=== PATIENT | female | born 1950 | race Two or more races ===

== ENCOUNTER 2020-09-09 13:26 | Emergency (ER) | payer BC, MEDICARE ==
[2020-09-09 13:39] VITALS: TEMP 98.7
[2020-09-09] MEDS ORDERED: SODIUM CHLORIDE 0.9% 1,000 ML IV STA (13:47)
[2020-09-09 14:23] LABS: Basophils % (A) 1 %; Eosinophils # (A) 0.2 k/uL (0-0.7); Eosinophils % (A) 2 %; HCT 37.1 % (34.0-46.0); HGB 11.7 gm/dL (11.4-16.0); Lymphocytes # (A) 1.2 k/uL (1.0-4.8); Lymphocytes % (A) 17 %; MCH 27.7 pg (25.0-35.0); MCHC 31.6 g/dL (31.0-37.0); MCV 87.5 fL (80.0-100.0); Monocytes # (A) 0.4 k/uL (0-1.0); Monocytes % (A) 6 %; Neutrophils # (A) 5.1 k/uL (1.3-7.7); Neutrophils % (A) 74 %; Platelet Count 257 k/uL (150-450); RBC 4.24 m/uL (3.80-5.40); RDW 13.8 % (11.5-15.5); WBC 6.9 k/uL (3.8-10.6)
[2020-09-09 14:31] LABS: ALT 14 U/L (4-34); AST 23 U/L (14-36); African American GFR (CKD) >90 (>60 ml/min/1.73 sqM); Alkaline Phosphatase 53 U/L (38-126); Anion Gap 9 mmol/L; Blood Urea Nitrogen 19 mg/dL (7-17); Calcium 9.1 mg/dL (8.4-10.2); Carbon Dioxide 25 mmol/L (22-30); Chloride 103 mmol/L (98-107); Glucose 119 mg/dL (74-99); Non-African American GFR(CKD) >90 (>60 ml/min/1.73 sqM); Sodium 137 mmol/L (137-145); Total Bilirubin 0.4 mg/dL (0.2-1.3); Total Protein 7.2 g/dL (6.3-8.2)
[2020-09-09 14:40] LABS: INR 0.9 (<1.2); Prothrombin Time 10.1 sec (9.0-12.0)
--- NOTE | 2020-09-09 14:49 | XR ---
EXAMINATION TYPE: XR chest 2V DATE OF EXAM: 09/09/2020 COMPARISON: NONE HISTORY: Syncope TECHNIQUE: Frontal and lateral views of the chest are obtained. FINDINGS: There is no focal air space opacity, pleural effusion, or pneumothorax seen. The cardiac silhouette size is showing an enlarged heart. Prominent lung volumes with flattening the hemidiaphra gms may be indicative of underlying COPD. Technique is somewhat apical lordotic and rotated. The osse ous structures are intact, there is thoracic spondylosis, there are overlying artifacts, consider fol low-up. IMPRESSION: Cardiomegaly and additional findings above.
[2020-09-09 15:28] LABS: Partial Thromboplastin Time 21.4 sec (22.0-30.0)
[2020-09-09 16:05] VITALS: RESP 18
--- NOTE | 2020-09-09 16:06 | CT ---
EXAMINATION TYPE: CT brain wo con DATE OF EXAM: 09/09/2020 COMPARISON: None HISTORY: Syncopal episode CT DLP: 1099.4 mGycm Automated exposure control for dose reduction was used. FINDINGS: The ventricles, basal cisterns and sulci over the convexities are within normal limits. Along the rig ht aspect of the anterior falx there is an 18 mm hyperdense mass which appears to be extra-axial and most likely represents a meningioma. MRI of the brain with contrast is recommended for further evalua tion. There is no acute intra or extra-axial hemorrhage. The posterior fossa including the brainstem, fourth ventricle and cerebellar pontine angles appear no rmal. The intraorbital contents appear normal and symmetric. Visualized paranasal sinuses and mastoid air cells are well aerated. IMPRESSION: IMPRESSION: 18 MM EXTRA-AXIAL MASS ON THE RIGHT ASPECT OF THE ANTERIOR FALX MOST CONSISTENT WITH A MENINGIOMA. MR I OF THE BRAIN WITH AND WITHOUT CONTRAST IS RECOMMENDED FOR FURTHER EVALUATION. THERE IS NO ACUTE BLE ED OR SIGNIFICANT MASS EFFECT INTRACRANIALLY.
[2020-09-09 16:16] LABS: Appearance,Urine Clear (Clear); Bilirubin,Urine Negative (Negative); Blood,Urine Negative (Negative); Color,Urine Light Yellow; Glucose,Urine (UA) Negative (Negative); Ketones,Urine Negative (Negative); Leukocyte Esterase,Urine Negative (Negative); Nitrite,Urine Negative (Negative); PH, Urine 6.5 (5.0-8.0); Protein,Urine Negative (Negative); Specific Gravity,Urine 1.006 (1.001-1.035); Urobilinogen,Urine <2.0 mg/dL (<2.0)
--- NOTE | 2020-09-09 16:42 | ED ---
General Adult HPI - General Chief complaint: Syncope Stated complaint: Syncope Time Seen by Provider: 09/09/20 13:37 Source: patient Mode of arrival: EMS Limitations: no limitations - History of Present Illness Initial comments: 70-year-old female presents to emergency department via EMS for chief complaint of a syncopal episode. Patient states she was cooking on the stove when suddenly she felt lightheaded but not dizzy. Patient reports her vision turned dark but then her son was there to help her to bring her down to the ground. The son states the patient was not responding to verbal commands for approximately 3 minutes. He states the patient was slightly disoriented afterwards but returned to baseline rather quickly. Patient denies any biting on the tongue or urinary incontinence but she does report some bowel incontinence. Patient reports feeling slightly tired at this time but denies any other symptoms. Said denies any tonic-clonic like movements suggesting a seizure. Patient has not seen a primary care physician in quite some time. She does take metformin for diabetes but has untreated hypertension. - Related Data Home Medications Medication Instructions Recorded Confirmed metFORMIN HCL [Glucophage] 2,000 mg PO PC-SUPPER 09/09/20 09/09/20 metFORMIN HCL [Glucophage] 500 mg PO PC-BRKFST PRN 09/09/20 09/09/20 Previous Rx's Medication Instructions Recorded lisinopriL [Zestril] 5 mg PO DAILY #30 tablet 09/09/20 Allergies Allergy/AdvReac Type Severity Reaction Status Date / Time Iodinated Contrast Media Allergy Anaphylaxis Verified 09/09/20 17:11 Review of Systems ROS Statement: Those systems with pertinent positive or pertinent negative responses have been documented in the HPI. ROS Other: All systems not noted in ROS Statement are negative. Past Medical History Past Medical History: Diabetes Mellitus, Hypertension History of Any Multi-Drug Resistant Organisms: None Reported Past Surgical History: Hysterectomy Smoking Status: Never smoker Past Alcohol Use History: None Reported Past Drug Use History: None Reported General Exam Limitations: no limitations General appearance: alert, in no apparent distress Head exam: Present: atraumatic, normocephalic, normal inspection Eye exam: Present: normal appearance, PERRL, EOMI Pupils: Present: normal accommodation ENT exam: Present: normal exam, normal oropharynx, mucous membranes moist Neck exam: Present: normal inspection, full ROM. Absent: tenderness Respiratory exam: Present: normal lung sounds bilaterally. Absent: respiratory distress Cardiovascular Exam: Present: regular rate, normal rhythm, normal heart sounds GI/Abdominal exam: Present: soft. Absent: guarding, rebound Extremities exam: Present: normal inspection, full ROM, normal capillary refill, other (Palpable DP and PT bilaterally). Absent: tenderness, pedal edema, joint swelling, calf tenderness Back exam: Present: normal inspection, full ROM. Absent: tenderness Neurological exam: Present: alert, oriented X3, CN II-XII intact, normal gait Psychiatric exam: Present: normal affect, normal mood Skin exam: Present: warm, dry, intact, normal color Course Vital Signs 09/09/20 09/09/20 09/09/20 13:27 15:57 16:04 Temperature 98.7 F Pulse Rate 82 89 86 Respiratory 18 20 18 Rate Blood Pressure 145/72 200/98 192/92 O2 Sat by Pulse 99 98 98 Oximetry 09/09/20 09/09/20 16:34 17:23 Temperature Pulse Rate 85 92 Respiratory 18 18 Rate Blood Pressure 177/82 162/85 O2 Sat by Pulse 99 98 Oximetry Medical Decision Making - Medical Decision Making 70-year-old female presents to the emergency department with a chief complaint of a syncopal. On physical examination, patient is resting comfortably in bed. She is alert and oriented 3. No focal neural deficits. EKG showing left axis deviation but no other acute findings. Chest x-ray is unremarkable. CT of the brain without contrast reveals an 18 mm meningioma but no mass effect. CBC, CMP, UA, coags unremarkable. Patient does have untreated hypertension for many years could possibly explain the left axis deviation likely secondary from left heart strain. Patient was initially hypertensive but her blood pressure did improve throughout the hospital stay. I offered admission to the patient considering her age, hypertension and a new syncopal episode. She discussed that with the son and decided they will follow palpation. I gave them multiple recommendations for a primary care physician and advised them to make an appointment with one. I also gave the patient a prescription of 30 days 5 mg lisinopril daily. Strict return parameters were thoroughly discussed with patient and son were understanding and agreeable. Case discussed with - Lab Data Result diagrams: 09/09/20 14:18 09/09/20 14:18 Lab Results 09/09/20 09/09/20 09/09/20 Range/Units 14:18 14:18 14:18 WBC 6.9 (3.8-10.6) k/uL RBC 4.24 (3.80-5.40) m/uL Hgb 11.7 (11.4-16.0) gm/dL Hct 37.1 (34.0-46.0) % MCV 87.5 (80.0-100.0) fL MCH 27.7 (25.0-35.0) pg MCHC 31.6 (31.0-37.0) g/dL RDW 13.8 (11.5-15.5) % Plt Count 257 (150-450) k/uL MPV 8.0 Neutrophils % 74 % Lymphocytes % 17 % Monocytes % 6 % Eosinophils % 2 % Basophils % 1 % Neutrophils # 5.1 (1.3-7.7) k/uL Lymphocytes # 1.2 (1.0-4.8) k/uL Monocytes # 0.4 (0-1.0) k/uL Eosinophils # 0.2 (0-0.7) k/uL Basophils # 0.0 (0-0.2) k/uL PT 10.1 (9.0-12.0) sec INR 0.9 (<1.2) APTT 21.4 L (22.0-30.0) sec Sodium 137 (137-145) mmol/L Potassium 4.0 (3.5-5.1) mmol/L Chloride 103 (98-107) mmol/L Carbon Dioxide 25 (22-30) mmol/L Anion Gap 9 mmol/L BUN 19 H (7-17) mg/dL Creatinine 0.62 (0.52-1.04) mg/dL Est GFR (CKD-EPI)AfAm >90 (>60 ml/min/1.73 sqM) Est GFR (CKD-EPI)NonAf >90 (>60 ml/min/1.73 sqM) Glucose 119 H (74-99) mg/dL Calcium 9.1 (8.4-10.2) mg/dL Total Bilirubin 0.4 (0.2-1.3) mg/dL AST 23 (14-36) U/L ALT 14 (4-34) U/L Alkaline Phosphatase 53 (38-126) U/L Troponin I (0.000-0.034) ng/mL Total Protein 7.2 (6.3-8.2) g/dL Albumin 4.0 (3.5-5.0) g/dL Urine Color Urine Appearance (Clear) Urine pH (5.0-8.0) Ur Specific [place] (1.001-1.035) Urine Protein (Negative) Urine Glucose (UA) (Negative) Urine Ketones (Negative) Urine Blood (Negative) Urine Nitrite (Negative) Urine Bilirubin (Negative) Urine Urobilinogen (<2.0) mg/dL Ur Leukocyte Esterase (Negative) 09/09/20 09/09/20 Range/Units 14:18 16:09 WBC (3.8-10.6) k/uL RBC (3.80-5.40) m/uL Hgb (11.4-16.0) gm/dL Hct (34.0-46.0) % MCV (80.0-100.0) fL MCH (25.0-35.0) pg MCHC (31.0-37.0) g/dL RDW (11.5-15.5) % Plt Count (150-450) k/uL MPV Neutrophils % % Lymphocytes % % Monocytes % % Eosinophils % % Basophils % % Neutrophils # (1.3-7.7) k/uL Lymphocytes # (1.0-4.8) k/uL Monocytes # (0-1.0) k/uL Eosinophils # (0-0.7) k/uL Basophils # (0-0.2) k/uL PT (9.0-12.0) sec INR (<1.2) APTT (22.0-30.0) sec Sodium (137-145) mmol/L Potassium (3.5-5.1) mmol/L Chloride (98-107) mmol/L Carbon Dioxide (22-30) mmol/L Anion Gap mmol/L BUN (7-17) mg/dL Creatinine (0.52-1.04) mg/dL Est GFR (CKD-EPI)AfAm (>60 ml/min/1.73 sqM) Est GFR (CKD-EPI)NonAf (>60 ml/min/1.73 sqM) Glucose (74-99) mg/dL Calcium (8.4-10.2) mg/dL Total Bilirubin (0.2-1.3) mg/dL AST (14-36) U/L ALT (4-34) U/L Alkaline Phosphatase (38-126) U/L Troponin I <0.012 (0.000-0.034) ng/mL Total Protein (6.3-8.2) g/dL Albumin (3.5-5.0) g/dL Urine Color Light Yellow Urine Appearance Clear (Clear) Urine pH 6.5 (5.0-8.0) Ur Specific [place] 1.006 (1.001-1.035) Urine Protein Negative (Negative) Urine Glucose (UA) Negative (Negative) Urine Ketones Negative (Negative) Urine Blood Negative (Negative) Urine Nitrite Negative (Negative) Urine Bilirubin Negative (Negative) Urine Urobilinogen <2.0 (<2.0) mg/dL Ur Leukocyte Esterase Negative (Negative) Disposition Clinical Impression: Syncopal episodes, Meningioma Disposition: HOME SELF-CARE Condition: Stable Instructions (If sedation given, give patient instructions): Syncope (DC), Hypertension (ED) Additional Instructions: Take prescribed medication as directed. Establish a relationship with a primary care physician. Return to emergency department if symptoms worsen. Prescriptions: lisinopriL [Zestril] 5 mg PO DAILY #30 tablet Is patient prescribed a controlled substance at d/c from ED?: No Referrals: None,Stated [Primary Care Provider] - 1-2 days Jennifer Frank MD [STAFF PHYSICIAN] - 1-2 days Genny Tafoya MD [STAFF PHYSICIAN] - 1-2 days Sarah Her MD [REFERRING] - 1-2 days Ryan De Guzman MD [STAFF PHYSICIAN] - 1-2 days Sujit Gore MD [STAFF PHYSICIAN] - 1-2 days Time of Disposition: 17:16
[2020-09-09 17:25] VITALS: BP 162/85; PULSE 92
== END 2020-09-09 17:23 | disposition home or self-care (01) ==
LOC: EC 13:26
DX: R55 Syncope and collapse (principal); D32.9 Benign neoplasm of meninges, unspecified; R41.0 Disorientation, unspecified; E11.9 Type 2 diabetes mellitus without complications; I10 Essential (primary) hypertension; R15.9 Full incontinence of feces; Z79.84 Long term (current) use of oral hypoglycemic drugs; Z91.041 Radiographic dye allergy status; Z90.710 Acquired absence of both cervix and uterus
CPT/HCPCS: 36415; 70450; 71046; 80053; 81003; 84484; 85025; 85610; 85730; 93005; 96360; 99285

== ENCOUNTER 2020-09-12 07:22 | Inpatient (IN) | payer BC, MEDICARE ==
[2020-09-12] MEDS ORDERED: SODIUM CHLORIDE 0.9% 500 ML 500 ML IV STA (07:51)
[2020-09-12 08:17] LABS: Basophils % (A) 0 %; Eosinophils % (A) 0 %; HCT 35.4 % (34.0-46.0); HGB 11.5 gm/dL (11.4-16.0); Lymphocytes # (A) 1.2 k/uL (1.0-4.8); Lymphocytes % (A) 20 %; MCH 28.3 pg (25.0-35.0); MCHC 32.6 g/dL (31.0-37.0); MCV 86.9 fL (80.0-100.0); Mean Platelet Volume 8.2; Monocytes # (A) 0.3 k/uL (0-1.0); Monocytes % (A) 4 %; Neutrophils # (A) 4.7 k/uL (1.3-7.7); Neutrophils % (A) 75 %; Platelet Count 201 k/uL (150-450); RBC 4.07 m/uL (3.80-5.40); RDW 13.4 % (11.5-15.5); WBC 6.2 k/uL (3.8-10.6)
[2020-09-12 08:31] LABS: Albumin 3.9 g/dL (3.5-5.0); Calcium 8.9 mg/dL (8.4-10.2); Magnesium 1.7 mg/dL (1.6-2.3); Potassium 4.2 mmol/L (3.5-5.1); Total Bilirubin 0.4 mg/dL (0.2-1.3)
[2020-09-12 08:33] LABS: INR 0.9 (<1.2); Partial Thromboplastin Time 24.2 sec (22.0-30.0); Prothrombin Time 9.7 sec (9.0-12.0)
--- NOTE | 2020-09-12 08:38 | ED ---
General Adult HPI - General Chief complaint: Syncope Stated complaint: revisit - syncope Time Seen by Provider: 09/12/20 07:30 Source: patient, family Mode of arrival: ambulatory Limitations: no limitations - History of Present Illness Initial comments: Patient is a 70-year-old female past medical history of diabetes mellitus on metformin and hypertension who presents to the emergency department after she sustained syncopal episode last night. This is the second episode that the patient has sustained in the past several days. Patient was seen on the for similar complaint. At that time she was cooking in the kitchen when her son lowered her to the ground due to a syncopal episode. She was seen here in the emergency department where a chest x-ray, laboratory studies, EKG and a CT of the brain was performed. CT of the brain demonstrated an 18 mm meningioma. Patient was hypertensive. Admission was recommended however the patient refused stating that she would follow up in office. Daughter states that she does have an appointment scheduled for tomorrow to see Dr. Her. She has not seen a doctor in some time. The patient once again had another syncopal episode last night. Daughter states that the patient was praying with her when she ended up slumping over to the floor. Patient denies having any symptoms prior to the incident. Denies any injury from a single episode. Patient once again lowered to the ground and was unresponsive for approximate 5 minutes. This was videotaped by family. There was no seizure-like activity. The patient did have an episode of stool incontinence. Denies black or bloody stools. Bowel movement was loose. No urinary incontinence. Patient denies having any chest pain or shortness of breath prior to the incident. Patient did not take her medications at this morning. Normally only checks her glucose once daily. Blood pressure was checked by son-in-law and was found to be 80s over 40s. The patient denies any headaches or visual changes. No sick contacts. Patient does arrive with a fever. Denies fevers at home. No previous cardiac history. Denies any abdominal pain. No other alleviating, precipitating or modifying factors - Related Data Home Medications Medication Instructions Recorded Confirmed metFORMIN HCL [Glucophage] 2,000 mg PO PC-SUPPER 09/09/20 09/09/20 metFORMIN HCL [Glucophage] 500 mg PO PC-BRKFST PRN 09/09/20 09/09/20 Previous Rx's Medication Instructions Recorded lisinopriL [Zestril] 5 mg PO DAILY #30 tablet 09/09/20 Allergies Allergy/AdvReac Type Severity Reaction Status Date / Time Iodinated Contrast Media Allergy Anaphylaxis Verified 09/12/20 07:24 Review of Systems ROS Statement: Those systems with pertinent positive or pertinent negative responses have been documented in the HPI. ROS Other: All systems not noted in ROS Statement are negative. Past Medical History Past Medical History: Diabetes Mellitus, Hypertension History of Any Multi-Drug Resistant Organisms: None Reported Past Surgical History: Hysterectomy Past Psychological History: No Psychological Hx Reported Smoking Status: Never smoker Past Alcohol Use History: None Reported Past Drug Use History: None Reported General Exam Limitations: no limitations General appearance: alert, in no apparent distress Head exam: Present: atraumatic, normocephalic, normal inspection Eye exam: Present: normal appearance, PERRL, EOMI. Absent: scleral icterus, conjunctival injection, periorbital swelling ENT exam: Present: normal exam, mucous membranes moist Neck exam: Present: normal inspection. Absent: tenderness, meningismus, lymphad enopathy Respiratory exam: Present: normal lung sounds bilaterally. Absent: respiratory distress, wheezes, rales, rhonchi, stridor Cardiovascular Exam: Present: regular rate, normal rhythm, normal heart sounds. Absent: systolic murmur, diastolic murmur, rubs, gallop, clicks GI/Abdominal exam: Present: soft, normal bowel sounds. Absent: distended, tenderness, guarding, rebound, rigid Extremities exam: Present: normal inspection, full ROM, normal capillary refill. Absent: tenderness, pedal edema, joint swelling, calf tenderness Back exam: Present: normal inspection Neurological exam: Present: alert, oriented X3, CN II-XII intact Psychiatric exam: Present: normal affect, normal mood Skin exam: Present: warm, dry, intact, normal color. Absent: rash Course Vital Signs 09/12/20 09/12/20 09/12/20 07:24 08:20 09:03 Temperature 100.6 F H 100.1 F H Pulse Rate 67 72 Pulse Rate [ 76 Left Sitting Baling Press Operator ] Pulse Rate [ 81 Left Standing Baling Press Operator ] Pulse Rate [ 76 Left Supine Baling Press Operator ] Respiratory 18 18 Rate Blood Pressure 154/73 135/75 Blood Pressure 146/68 [Left Arm Sitting] Blood Pressure 153/63 [Left Arm Standing] Blood Pressure 139/71 [Left Arm Supine] O2 Sat by Pulse 95 96 Oximetry EKG Findings - EKG Comments: EKG Findings:: EKG demonstrates normal sinus rhythm with ventricular rate of 75. PT inteval 166. QRS 90. QTC 439. No acute ST segment elevations or depressions concerning for ischemic changes Medical Decision Making - Medical Decision Making Martín patient is placed in room 3. A thorough history and physical exam was performed. IV is established. Orthostatics are obtained and are negative. Patient is given a 500 mL bolus of normal saline. I repeated laboratory studies. Patient did provide a urine sample. She is swabbed for covid due to her fever. I did review the patient's chest x-ray and CT of her brain from the seventh. Laboratory studies are reviewed and demonstrated a d-dimer of 1. Coronavirus is detected. Rare bacteria in the urine with small leukocyte esterase. I did order a CT of the patient's chest however the patient refused the study. Risks and benefits are discussed patient the patient continues to refuse. As the patient has had 2 single episodes that did recommend hospital admission for which patient did agree to. Patient started on Lovenox at this time. Carotids and echo ordered. Spoke with Preeti from [facility] who accepted admission. Patient awaiting a bed on the floor. - Lab Data Result diagrams: 09/12/20 07:59 09/12/20 07:59 Lab Results 09/12/20 09/12/20 09/12/20 Range/Units 07:59 07:59 07:59 WBC 6.2 (3.8-10.6) k/uL RBC 4.07 (3.80-5.40) m/uL Hgb 11.5 (11.4-16.0) gm/dL Hct 35.4 (34.0-46.0) % MCV 86.9 (80.0-100.0) fL MCH 28.3 (25.0-35.0) pg MCHC 32.6 (31.0-37.0) g/dL RDW 13.4 (11.5-15.5) % Plt Count 201 (150-450) k/uL MPV 8.2 Neutrophils % 75 % Lymphocytes % 20 % Monocytes % 4 % Eosinophils % 0 % Basophils % 0 % Neutrophils # 4.7 (1.3-7.7) k/uL Lymphocytes # 1.2 (1.0-4.8) k/uL Monocytes # 0.3 (0-1.0) k/uL Eosinophils # 0.0 (0-0.7) k/uL Basophils # 0.0 (0-0.2) k/uL PT 9.7 (9.0-12.0) sec INR 0.9 (<1.2) APTT 24.2 (22.0-30.0) sec D-Dimer 1.00 H (<0.60) mg/L FEU Sodium (137-145) mmol/L Potassium (3.5-5.1) mmol/L Chloride (98-107) mmol/L Carbon Dioxide (22-30) mmol/L Anion Gap mmol/L BUN (7-17) mg/dL Creatinine (0.52-1.04) mg/dL Est GFR (CKD-EPI)AfAm (>60 ml/min/1.73 sqM) Est GFR (CKD-EPI)NonAf (>60 ml/min/1.73 sqM) Glucose (74-99) mg/dL Plasma Lactic Acid [place] (0.7-2.0) mmol/L Calcium (8.4-10.2) mg/dL Magnesium (1.6-2.3) mg/dL Total Bilirubin (0.2-1.3) mg/dL AST (14-36) U/L ALT (4-34) U/L Alkaline Phosphatase (38-126) U/L Troponin I (0.000-0.034) ng/mL Total Protein (6.3-8.2) g/dL Albumin (3.5-5.0) g/dL TSH (0.465-4.680) mIU/L Urine Color Urine Appearance (Clear) Urine pH (5.0-8.0) Ur Specific [place] (1.001-1.035) Urine Protein (Negative) Urine Glucose (UA) (Negative) Urine Ketones (Negative) Urine Blood (Negative) Urine Nitrite (Negative) Urine Bilirubin (Negative) Urine Urobilinogen (<2.0) mg/dL Ur Leukocyte Esterase (Negative) Urine RBC (0-5) /hpf Urine WBC (0-5) /hpf Ur Squamous Epith Cells (0-4) /hpf Urine Bacteria (None) /hpf Hyaline Casts (0-2) /lpf Urine Mucus (None) /hpf Coronavirus (PCR) Detected A (Not Detectd) Influenza Type A RNA Not Detected (Not Detectd) Influenza Type B (PCR) Not Detected (Not Detectd) 09/12/20 09/12/20 09/12/20 Range/Units 07:59 07:59 07:59 WBC (3.8-10.6) k/uL RBC (3.80-5.40) m/uL Hgb (11.4-16.0) gm/dL Hct (34.0-46.0) % MCV (80.0-100.0) fL MCH (25.0-35.0) pg MCHC (31.0-37.0) g/dL RDW (11.5-15.5) % Plt Count (150-450) k/uL MPV Neutrophils % % Lymphocytes % % Monocytes % % Eosinophils % % Basophils % % Neutrophils # (1.3-7.7) k/uL Lymphocytes # (1.0-4.8) k/uL Monocytes # (0-1.0) k/uL Eosinophils # (0-0.7) k/uL Basophils # (0-0.2) k/uL PT (9.0-12.0) sec INR (<1.2) APTT (22.0-30.0) sec D-Dimer (<0.60) mg/L FEU Sodium 134 L (137-145) mmol/L Potassium 4.2 (3.5-5.1) mmol/L Chloride 99 (98-107) mmol/L Carbon Dioxide 25 (22-30) mmol/L Anion Gap 10 mmol/L BUN 15 (7-17) mg/dL Creatinine 0.81 (0.52-1.04) mg/dL Est GFR (CKD-EPI)AfAm 86 (>60 ml/min/1.73 sqM) Est GFR (CKD-EPI)NonAf 74 (>60 ml/min/1.73 sqM) Glucose 110 H (74-99) mg/dL Plasma Lactic Acid [place] 1.0 (0.7-2.0) mmol/L Calcium 8.9 (8.4-10.2) mg/dL Magnesium 1.7 (1.6-2.3) mg/dL Total Bilirubin 0.4 (0.2-1.3) mg/dL AST 27 (14-36) U/L ALT 15 (4-34) U/L Alkaline Phosphatase 49 (38-126) U/L Troponin I (0.000-0.034) ng/mL Total Protein 7.0 (6.3-8.2) g/dL Albumin 3.9 (3.5-5.0) g/dL TSH 3.790 (0.465-4.680) mIU/L Urine Color Yellow Urine Appearance Clear (Clear) Urine pH 6.5 (5.0-8.0) Ur Specific [place] 1.012 (1.001-1.035) Urine Protein 1+ H (Negative) Urine Glucose (UA) Negative (Negative) Urine Ketones Negative (Negative) Urine Blood Negative (Negative) Urine Nitrite Negative (Negative) Urine Bilirubin Negative (Negative) Urine Urobilinogen <2.0 (<2.0) mg/dL Ur Leukocyte Esterase Small H (Negative) Urine RBC 1 (0-5) /hpf Urine WBC 2 (0-5) /hpf Ur Squamous Epith Cells <1 (0-4) /hpf Urine Bacteria Rare H (None) /hpf Hyaline Casts 1 (0-2) /lpf Urine Mucus Few H (None) /hpf Coronavirus (PCR) (Not Detectd) Influenza Type A RNA (Not Detectd) Influenza Type B (PCR) (Not Detectd) 09/12/20 Range/Units 07:59 WBC (3.8-10.6) k/uL RBC (3.80-5.40) m/uL Hgb (11.4-16.0) gm/dL Hct (34.0-46.0) % MCV (80.0-100.0) fL MCH (25.0-35.0) pg MCHC (31.0-37.0) g/dL RDW (11.5-15.5) % Plt Count (150-450) k/uL MPV Neutrophils % % Lymphocytes % % Monocytes % % Eosinophils % % Basophils % % Neutrophils # (1.3-7.7) k/uL Lymphocytes # (1.0-4.8) k/uL Monocytes # (0-1.0) k/uL Eosinophils # (0-0.7) k/uL Basophils # (0-0.2) k/uL PT (9.0-12.0) sec INR (<1.2) APTT (22.0-30.0) sec D-Dimer (<0.60) mg/L FEU Sodium (137-145) mmol/L Potassium (3.5-5.1) mmol/L Chloride (98-107) mmol/L Carbon Dioxide (22-30) mmol/L Anion Gap mmol/L BUN (7-17) mg/dL Creatinine (0.52-1.04) mg/dL Est GFR (CKD-EPI)AfAm (>60 ml/min/1.73 sqM) Est GFR (CKD-EPI)NonAf (>60 ml/min/1.73 sqM) Glucose (74-99) mg/dL Plasma Lactic Acid [place] (0.7-2.0) mmol/L Calcium (8.4-10.2) mg/dL Magnesium (1.6-2.3) mg/dL Total Bilirubin (0.2-1.3) mg/dL AST (14-36) U/L ALT (4-34) U/L Alkaline Phosphatase (38-126) U/L Troponin I <0.012 (0.000-0.034) ng/mL Total Protein (6.3-8.2) g/dL Albumin (3.5-5.0) g/dL TSH (0.465-4.680) mIU/L Urine Color Urine Appearance (Clear) Urine pH (5.0-8.0) Ur Specific [place] (1.001-1.035) Urine Protein (Negative) Urine Glucose (UA) (Negative) Urine Ketones (Negative) Urine Blood (Negative) Urine Nitrite (Negative) Urine Bilirubin (Negative) Urine Urobilinogen (<2.0) mg/dL Ur Leukocyte Esterase (Negative) Urine RBC (0-5) /hpf Urine WBC (0-5) /hpf Ur Squamous Epith Cells (0-4) /hpf Urine Bacteria (None) /hpf Hyaline Casts (0-2) /lpf Urine Mucus (None) /hpf Coronavirus (PCR) (Not Detectd) Influenza Type A RNA (Not Detectd) Influenza Type B (PCR) (Not Detectd) Disposition Clinical Impression: Syncopal episodes, COVID-19, Fever, Diarrhea Disposition: ADMITTED IP TO THIS [facility] Condition: Stable Is patient prescribed a controlled substance at d/c from ED?: No Referrals: Sarah Her MD [Primary Care Provider] - 1-2 days Decision to Admit Reason: Admit from EC Decision Date: 09/12/20 Decision Time: 09:18
[2020-09-12 08:40] LABS: SARS-CoV-2 RNA Rapid Abbott Detected (Not Detectd)
[2020-09-12 08:41] LABS: Appearance,Urine Clear (Clear); Bacteria,Urine Rare /hpf; Bilirubin,Urine Negative (Negative); Blood,Urine Negative (Negative); Color,Urine Yellow; Glucose,Urine (UA) Negative (Negative); Hyaline Casts,Urine 1 /lpf (0-2); Ketones,Urine Negative (Negative); Leukocyte Esterase,Urine Small (Negative); Mucus,Urine Few /hpf; Nitrite,Urine Negative (Negative); PH, Urine 6.5 (5.0-8.0); Protein,Urine 1+ (Negative); RBC,Urine 1 /hpf (0-5); Specific Gravity,Urine 1.012 (1.001-1.035); Squamous Epithelial Cell,Urine <1 /hpf (0-4); Urobilinogen,Urine <2.0 mg/dL (<2.0); WBC,Urine 2 /hpf (0-5)
[2020-09-12] MEDS ORDERED: methylPREDNISolone SOD SUCCI 125 MG/2 ML VIAL IV STA (08:54)
[2020-09-12] MEDS ORDERED: diphenhydrAMINE 50 MG/ML 1 ML VIAL IVP STA (08:54)
[2020-09-12] MEDS ORDERED: FAMOTIDINE 20 MG/2 ML VIAL IV STA (08:54)
[2020-09-12] MEDS ORDERED: ENOXAPARIN 60 MG/0.6 ML SYRINGE SQ ONE (09:15)
[2020-09-12] MEDS ORDERED: NALOXONE 0.4 MG/ML 1 ML VIAL IV PRN (09:18)
[2020-09-12] MEDS ORDERED: ACETAMINOPHEN TAB 325 MG TAB PO PRN (09:18)
[2020-09-12] MEDS: SODIUM CHLORIDE 0.9% 1,000 ML IV SCH ×2 (10:29→20:27)
--- NOTE | 2020-09-12 10:31 | US ---
EXAMINATION TYPE: US carotid duplex BILAT DATE OF EXAM: 09/12/2020 COMPARISON: NONE CLINICAL HISTORY: 70-year-old female syncope x2. Syncopal episode this morning. Diagnosed with COVID this morning. TECHNIQUE: Carotid duplex ultrasound examination. Indirect Doppler criteria was utilized. 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 No elevated velocities. No significant stenosis. No plaque visualized. Incidental finding: Right thyroid lobe nodule = 2.6 x 2.1 x 2.0 cm Incidental finding: Right lateral neck prominent lymph node = 2.1 x 1.0 x 0.7 cm IMPRESSION: 1. Measurements may reflect a mild, less than 50% stenosis in the left ICA. 2. No hemodynamically significant internal carotid artery stenosis on either side. 3. Incidental primarily solid, round, echogenic nodule measuring 2.6 cm in the right thyroid lobe. This is a TR3 nodule and based on size criteria, FNA can be performed. 4. A mildly thickened and borderline sized lymph node along the right lateral neck measuring 1.0 cm s hort axis. Recommend clinical follow-up for any palpable abnormality. 6-8 week follow-up ultrasound c an also be performed. Criteria for Assigning % of Stenosis / Diameter reduction (Estimation based on the indirect measurements of the internal carotid artery velocities (ICA PSV). 1. Normal (no stenosis)=ICA PSV < 125 cm/s: ratio < 2.0: ICA EDV<40 cm/s. 2. Less than 50% stenosis=ICA PSV < 125 cm/s: ratio < 2.0: ICA EDV<40 cm/s. 3. 50 to 69% stenosis=ICA PSV of 125 to 230 cm/s: ration 2.0 ? 4.0: ICA EDV 40-100 cm/s. 4. Greater than 70% stenosis to near occlusion= ICA PSV > 230 cm/s: ratio > 4.0: ICA EDV > 100 cm/s. 5. Near occlusion= ICA PSV velocities may be low or undetectable: variable ratio and ICA EDV. 6. Total occlusion=unable to detect flow.
--- NOTE | 2020-09-12 12:11 | XR ---
EXAMINATION TYPE: XR chest 1V portable DATE OF EXAM: 09/12/2020 CLINICAL HISTORY: Covid positive. TECHNIQUE: Single AP portable frontal view of the chest is obtained. COMPARISON: Chest x-ray from 3 days earlier FINDINGS: Background chronic parenchymal changes without suspicious new focal airspace opacity, pleu ral effusion, or pneumothorax seen bilaterally. Persistent cardiomegaly. Overlying EKG leads. Osseous structures remain intact. IMPRESSION: Chronic changes and cardiomegaly without new acute airspace opacity. No significant guy e from prior.
--- NOTE | 2020-09-12 15:42 | P.CNPUL ---
History of Present Illness Consult date: 09/12/20 Requesting physician: Lizeth Munoz Reason for consult: other Chief complaint: syncope History of present illness: 70-year-old white female patient with past medical history of hypertension, diabetes mellitus on metformin, lifetime nonsmoker, who presented emergency department on the 09/12/2020 after having a syncopal episode last night. This is her second syncopal episode in the past several days. Patient was seen in the emergency department on 09/09/2020 with a syncopal episode. CT of the brain without contrast on 09/09/2020 revealed the 18 mm meningioma but no mass effect. Her laboratory workup and coags were unremarkable, EKG showed left axis deviation but no other acute findings, chest x-ray was unremarkable. Patient has not seen a physician in some time, she takes metformin for her diabetes but she has untreated hypertension. Patient was offered admission at that time ho wever she was feeling better and she decided to follow up on outpatient basis. Patient was given a new prescription of lisinopril 5 mg daily at that time for elevated blood pressures. Patient had another syncopal episode last night when she was playing with her and ended up slumping over to the floor and patient had no symptoms prior to the incident. Patient did not suffer any injuries. Patient was lowered to the ground and she was unresponsive for approximately 5 minutes, and this was videotaped by her family, there was no seizure-like activity, patient did have an episode of stool incontinence, no black or bloody stools, her bowel movement was loose, there was no urinary incontinence, patient denied any chest pain or shortness of breath prior to the incident. Patient did not take her medications this morning. Her blood pressure was checked by her son-in-law and was low at 80/40. When the patient came to she denied any headaches or visual changes. Patient did have a fever at home, but no shortness of breath, no cough. No nausea vomiting or diarrhea. He was tested for COVID 19 and was found to be positive, influenza screen was negative. CBC was unremarkable, Her d-dimer was 1, sodium is 134, the rest of electrolytes and renal profile were unremarkable, glucose was 110, lactic acid was 1, troponin was less than 0.012, LFTs were within normal limits, TSH was wi thin normal limits, urinalysis showed 1+ protein, small amount of leuks, but no evidence of infection. She is currently on room air, her pulse oximetry 95-98%, she is in sinus mechanism, her EKG showed normal sinus rhythm with left anterior fascicular block. Echocardiogram was completed showing no hemodynamically significant internal carotid artery stenosis on either side, incidental round echogenic nodule in the right thyroid lobe. Chest x-ray showed chronic changes and cardiomegaly without new acute airspace opacity. No significant pulmonary symptoms. She is however febrile with a temp of 100.6F. She is receiving gentle IV hydration, is resting comfortably in the gurney in the emergency department awaiting a bed on selective care unit. Review of Systems All systems: negative Constitutional: Denies chills, Denies fever Eyes: denies blurred vision, denies pain Ears, nose, mouth and throat: Denies headache, Denies sore throat Cardiovascular: Denies chest pain, Denies shortness of breath Respiratory: Denies cough Gastrointestinal: Denies abdominal pain, Denies diarrhea, Denies nausea, Denies vomiting Genitourinary: Denies dysuria, Denies hematuria Musculoskeletal: Denies myalgias Integumentary: Denies pruritus, Denies rash Neurological: Reports syncope, Denies numbness, Denies weakness Psychiatric: Denies anxiety, Denies depression Endocrine: Denies fatigue, Denies weight change Past Medical History Past Medical History: Diabetes Mellitus, Hypertension History of Any Multi-Drug Resistant Organisms: None Reported Past Surgical History: Hysterectomy Past Psychological History: No Psychological Hx Reported Smoking Status: Never smoker Past Alcohol Use History: None Reported Past Drug Use History: None Reported Medications and Allergies Home Medications Medication Instructions Recorded Confirmed Type metFORMIN HCL [Glucophage] 2,000 mg PO PC-SUPPER 09/09/20 09/12/20 History lisinopriL [Zestril] 5 mg PO HS 09/12/20 09/12/20 History Allergies Allergy/AdvReac Type Severity Reaction Status Date / Time Iodinated Contrast Media Allergy Anaphylaxis Verified 09/12/20 09:19 Physical Exam Vitals: Vital Signs Temp Pulse Pulse Pulse Pulse Resp BP 09/12/20 14:46 99.8 F H 94 18 142/68 09/12/20 09:03 100.1 F H 72 18 135/75 09/12/20 08:20 76 81 76 09/12/20 07:24 100.6 F H 67 18 154/73 BP BP BP Pulse Ox 09/12/20 14:46 98 09/12/20 09:03 96 09/12/20 08:20 146/68 153/63 139/71 09/12/20 07:24 95 Intake and Output 09/12/20 09/12/20 09/12/20 06:59 14:59 22:59 Other: Weight 65.771 kg GENERAL EXAM: Alert, very pleasant, 70-year-old white female, on room air, with a pulse ox of 95-98% comfortable in no apparent distress. HEAD: Normocephalic/atraumatic. EYES: Normal reaction of pupils, equal size. Conjunctiva pink, sclera white. NOSE: Clear with pink turbinates. THROAT: No erythema or exudates. NECK: No masses, no JVD, no thyroid enlargement, no adenopathy. CHEST: No chest wall deformity. Symmetrical expansion. LUNGS: Equal air entry with no crackles, wheeze, rhonchi or dullness. CVS: Regular rate and rhythm, normal S1 and S2, no gallops, no murmurs, no rubs ABDOMEN: Soft, nontender. No hepatosplenomegaly, normal bowel sounds, no guarding or rigidity. EXTREMITIES: No clubbing, no edema, no cyanosis, 2+ pulses and upper and lower extremities. MUSCULOSKELETAL: Muscle strength and tone normal. SPINE: No scoliosis or deformity SKIN: No rashes CENTRAL NERVOUS SYSTEM: Alert and oriented -3. No focal deficits, tone is normal in all 4 extremities. PSYCHIATRIC: Alert and oriented -3. Appropriate affect. Intact judgment and insight. Results - Laboratory Findings CBC and BMP: 09/12/20 07:59 09/12/20 07:59 PT/INR, D-dimer PT 9.7 sec (9.0-12.0) 09/12/20 07:59 INR 0.9 (<1.2) 09/12/20 07:59 D-Dimer 1.00 mg/L FEU (<0.60) H 09/12/20 07:59 Abnormal lab findings: Abnormal Labs 09/12/20 09/12/20 09/12/20 07:59 07:59 07:59 D-Dimer 1.00 H Sodium Glucose Urine Protein 1+ H Ur Leukocyte Esterase Small H Urine Bacteria Rare H Urine Mucus Few H Coronavirus (PCR) Detected A 09/12/20 07:59 D-Dimer Sodium 134 L Glucose 110 H Urine Protein Ur Leukocyte Esterase Urine Bacteria Urine Mucus Coronavirus (PCR) - Diagnostic Findings Chest x-ray: report reviewed, image reviewed Additional studies: EKG reviewed, carotid Doppler study reviewed, brain CT from 09/09/2000 reviewed Assessment and Plan Plan: Assessment: #1. Recurrent syncopal episodes of unclear etiology, patient was seen in the emergency department on 09/09/2020 and presenting again with recurrent syncope on all 09/12/2020 #2. Fever related to acute COVID 19 infection. No pulmonary symptoms no hypoxia at the time of presentation #3. d-dimer of 1, patient has declined to have CTA of the chest, this is nonspecific, possibly related to acute COVID 19 infection, patient was initially started on therapeutic doses of Lovenox which will be down to prophylactic Lovenox 40 mg daily #4. Hypertension, recently started on lisinopril and her last ER visit for sy ncope #5. 18 mm meningioma in the right aspect of the anterior falx, with the recommendation for MRI of the brain for further evaluation. No acute intracranial bleed or significant mass effect #6. Diabetes mellitus type 2 Plan: We'll consult cardiology and neurology for evaluation of patient's recurrent syncopal episodes, echocardiogram has been completed, EKG has been noted, chest x-ray has been reviewed, patient declined CTA chest, however she has no evidence of hypoxemia, no chest discomfort, no pulmonary symptoms, we will decrease the Lovenox to prophylactic dose 40 mg daily, continue gentle IV hydration. Carotid Doppler results have been reviewed. Continue to monitor patient's febrile pattern, dyspnea and any evidence of hypoxia. We'll start the patient on multivitamins, obtain lower extremity Dopplers, no need for steroids right now, patient is on room air, oxygenation is stable. We'll continue to follow I performed a history & physical examination of the patient and discussed their management with my nurse practitioner, Nany Montgomery. I reviewed the nurse practitioner's note and agree with the documented findings and plan of care. Lung sounds are positive for diffuse wheezes throughout the lung dixon. The findings and the impression was discussed with the patient. I attest to the documentation by the nurse practitioner. Time with Patient: Greater than 30
--- NOTE | 2020-09-12 16:35 | US ---
EXAMINATION TYPE: US venous doppler duplex LE DATE OF EXAM: 09/12/2020 4:25 PM COMPARISON: NONE CLINICAL HISTORY: elevated d-dimer. Covid patient, leg swelling SIDE PERFORMED: Bilateral TECHNIQUE: The lower extremity deep venous system is examined utilizing real time linear array sonog lizzie with graded compression, doppler sonography and color-flow sonography. VESSELS IMAGED: Common Femoral Vein Deep Femoral Vein Greater Saphenous Vein * Femoral Vein Popliteal Vein Small Saphenous Vein * Proximal Calf Veins (* superficial vessels) Right Leg: Negative for DVT Left Leg: Negative for DVT Grayscale, color doppler, spectral doppler imaging performed of the deep veins of the bilateral lower extremities. There is normal flow, compressibility, vascular waveforms. IMPRESSION: No ultrasound evidence for acute DVT in either lower extremity.
[2020-09-12 17:08] LABS: Glucose,Whole Blood 78 mg/dL (75-99)
[2020-09-12] MEDS: ZINC SULFATE 220 MG CAP PO SCH (17:25)
[2020-09-12] MEDS: CHOLECALCIFEROL 25 MCG (1000 IU) TABLET PO SCH (17:25)
--- NOTE | 2020-09-12 17:30 | P.HPIM ---
History of Present Illness Patient is a pleasant 70-year-old female came in after a syncopal episode while she was praying. Patient had a similar event the about 3 days ago on Thursday and patient came to ER had a CT of the head which showed an 18 mm meningioma without any mass effect and had laboratory workup was negative at the time. Patient came back with another episode of for syncopal event which was videotaped. I did happen to watch the pictures and medial patient became pale before syncopal episode patient doesn't have any confusion after the episode episode lasted for few minutes patient having any seizure-like activity loss of bowel or bladder incontinence. Patient had a low-grade fever because of which covid 19 test was obtained which came back positive. Patient simply as a screen was negative. Patient's LFTs and TSH are within normal limits troponin is negative patient has mildly low sodium of 134 and patient is on IV fluids at this time EKG showed a normal sinus rhythm with left anterior fascicular block echocardiogram was obtai shaggy as are pending patient had an carotid Doppler which did not show significant stenosis although there is some stenosis of less than 50% on one side. And there is an incidental finding of a solitary thyroid nodule which may need a biopsy. Review of Systems REVIEW OF SYSTEMS: CONSTITUTIONAL: As mentioned in HPI HEENT: No recent visual problems or hearing problems. Denied any sore throat. CARDIOVASCULAR: No chest pain, orthopnea, PND, no palpitations. PULMONARY: No shortness of breath, no cough, no hemoptysis. GASTROINTESTINAL: No diarrhea, no nausea, no vomiting, no abdominal pain. NEUROLOGICAL: No headaches, no weakness, no numbness. HEMATOLOGICAL: Denies any bleeding or petechiae. GENITOURINARY: Denies any burning micturition, frequency, or urgency. MUSCULOSKELETAL/RHEUMATOLOGICAL: Denies any joint pain, swelling, or any muscle pain. ENDOCRINE: Denies any polyuria or polydipsia. The rest of the 14-point review of systems is negative. Past Medical History Past Medical History: Diabetes Mellitus, Hypertension History of Any Multi-Drug Resistant Organisms: None Reported Past Surgical History: Hysterectomy Past Anesthesia/Blood Transfusion Reactions: No Reported Reaction Smoking Status: Never smoker Medications and Allergies Home Medications Medication Instructions Recorded Confirmed Type metFORMIN HCL [Glucophage] 2,000 mg PO PC-SUPPER 09/09/20 09/12/20 History lisinopriL [Zestril] 5 mg PO HS 09/12/20 09/12/20 History Allergies Allergy/AdvReac Type Severity Reaction Status Date / Time Iodinated Contrast Media Allergy Anaphylaxis Verified 09/12/20 09:19 Physical Exam Vitals: Vital Signs Temp Pulse Pulse Pulse Pulse Resp BP 09/12/20 15:44 99.0 F 81 16 09/12/20 14:46 99.8 F H 94 18 142/68 09/12/20 09:03 100.1 F H 72 18 135/75 09/12/20 08:20 76 81 76 09/12/20 07:24 100.6 F H 67 18 154/73 BP BP BP Pulse Ox 09/12/20 15:44 151/71 94 L 09/12/20 14:46 98 09/12/20 09:03 96 09/12/20 08:20 146/68 153/63 139/71 09/12/20 07:24 95 Intake and Output 09/12/20 09/12/20 09/12/20 06:59 14:59 22:59 Other: Weight 65.771 kg 65.771 kg PHYSICAL EXAMINATION: GENERAL: The patient is alert and oriented x3, not in any acute distress. Well developed, well nourished. HEENT: Pupils are round and equally reacting to light. EOMI. No scleral icterus. No conjunctival pallor. Normocephalic, atraumatic. No pharyngeal erythema. No thyromegaly. CARDIOVASCULAR: S1 and S2 present. No murmurs, rubs, or gallops. PULMONARY: Chest is clear to auscultation, no wheezing or crackles. ABDOMEN: Soft, nontender, nondistended, normoactive bowel sounds. No palpable organomegaly. MUSCULOSKELETAL: No joint swelling or deformity. EXTREMITIES: No cyanosis, clubbing, or pedal edema. NEUROLOGICAL: Gross neurological examination did not reveal any focal deficits. SKIN: No rashes. Note: Because of COVID 19 isolation, some of the history and physical exam findings are indirect and obtained from nursing staff, and other physician examinations to avoid unnecessary contact with the patient. Results CBC & Chem 7: 09/12/20 07:59 09/12/20 07:59 Labs: Abnormal Lab Results - Last 24 Hours (Table) 09/12/20 09/12/20 09/12/20 Range/Units 07:59 07:59 07:59 D-Dimer 1.00 H (<0.60) mg/L FEU Sodium (137-145) mmol/L Glucose (74-99) mg/dL Urine Protein 1+ H (Negative) Ur Leukocyte Esterase Small H (Negative) Urine Bacteria Rare H (None) /hpf Urine Mucus Few H (None) /hpf Coronavirus (PCR) Detected A (Not Detectd) 09/12/20 Range/Units 07:59 D-Dimer (<0.60) mg/L FEU Sodium 134 L (137-145) mmol/L Glucose 110 H (74-99) mg/dL Urine Protein (Negative) Ur Leukocyte Esterase (Negative) Urine Bacteria (None) /hpf Urine Mucus (None) /hpf Coronavirus (PCR) (Not Detectd) Thrombosis Risk Factor Assmnt - Choose All That Apply Each Risk Factor Represents 2 Points: Age 61-74 years Other congenital or acquired thrombophilia - If yes, enter type in comment: No Thrombosis Risk Factor Assessment Total Risk Factor Score: 2 Thrombosis Risk Factor Assessment Level: Low Risk Assessment and Plan Plan: -Recurrent syncopal episode: Possible etiologies being dehydration from Covid19 infection. We will rule out any cardiac causes pallor abnormalities with an echocardiogram. Possibility of TIAs low. Patient will be monitored on telemetry cardiology and neurology were consulted. -Covid 19 infection: Patient is presently not hypoxic will not need any systemic steroids at this time. -Mildly elevated d-dimer secondary to the infection -Hypertension and patient was recently started on lisinopril as an outpatient. which will be held temporarily because of her syncopal events. -Incidental finding of meningioma, possibly will not require any intervention -Thyroid nodule on carotid Doppler which is a solitary thyroid nodule will need an outpatient fine-needle aspiration -Type 2 diabetes mellitus patient will be on sliding scale insulin for now. -DVT prophylaxis early ambulation
[2020-09-12] MEDS: INSULIN ASPART (NovoLOG) 100 UNIT/ML VIAL SQ SCH ×2 (17:44→21:08)
--- NOTE | 2020-09-12 19:54 | ECHOF ---
Referral Reason:syncope x2 MEASUREMENTS -------- HEIGHT: 165.1 cm WEIGHT: 65.8 kg BP: RVIDd: 2.4 cm (< 3.3) IVSd: 1.2 cm (0.6 - 1.1) LVIDd: 3.9 cm (3.9 - 5.3) LVPWd: 1.3 cm (0.6 - 1.1) IVSs: 1.7 cm LVIDs: 2.2 cm LVPWs: 1.8 cm LAESV Index (A-L): 31.79 ml/m Ao Diam: 2.6 cm (2.0 - 3.7) AV Cusp: 1.6 cm (1.5 - 2.6) LA Diam: 3.3 cm (2.7 - 3.8) MV EXCURSION: 14.924 mm (> 18.000) MV EF SLOPE: 38 mm/s (70 - 150) EPSS: 0.7 cm MV E Franklin: 1.21 m/s MV DecT: 228 ms MV A Franklin: 1.35 m/s MV E/A Ratio: 0.89 AV maxP.61 mmHg AV meanP.53 mmHg AR PHT: 142 ms RAP: 5.00 mmHg RVSP: 15.22 mmHg FINDINGS -------- Sinus rhythm. This was a technically adequate study. The left ventricular size is normal. There is mild concentric left ventricular hypertrophy. Overa ll left ventricular systolic function is normal with, an EF between 55 - 60 %. Normal LAP Grade 1 D iastolic Dysfunction. The right ventricle is normal in size. LA is midly dilated 29-33ml/m2. The right atrial size is normal. There is moderate aortic valve sclerosis. Trace to mild aortic regurgitation. Peak/mean gradient across the Aortic Valve is 15.61mmHg / 9.53mmHg. Moderate mitral annular calcification present. Mild mitral regurgitation is present. The tricuspid valve appears structurally normal. Mild tricuspid regurgitation present. Right vent ricular systolic pressure is normal at < 35 mmHg. There is no evidence of pulmonary hypertension. There is no pulmonic regurgitation present. The aortic root size is normal. Normal inferior vena cava with normal inspiratory collapse consistent with estimated right atrial pre ssure of 5 mmHg. There is no pericardial effusion. CONCLUSIONS -------- 1. There is mild concentric left ventricular hypertrophy. 2. Overall left ventricular systolic function is normal with, an EF between 55 - 60 %. 3. Normal LAP Grade 1 Diastolic Dysfunction. 4. LA is midly dilated 29-33ml/m2. 5. There is moderate aortic valve sclerosis. 6. Trace to mild aortic regurgitation. 7. Peak/mean gradient across the Aortic Valve is 15.61mmHg / 9.53mmHg. 8. Moderate mitral annular calcification present. 9. Mild mitral regurgitation is present. 10. Mild tricuspid regurgitation present. 11. There is no pericardial effusion. [employer]: Yoli Hurley RDCS
[2020-09-12 20:26] VITALS: RESP 18
[2020-09-12] MEDS: ASCORBIC ACID 500 MG TAB PO SCH (20:27)
[2020-09-12 20:54] LABS: Glucose,Whole Blood 113 mg/dL (75-99)
[2020-09-12] MEDS ORDERED: ENOXAPARIN 60 MG/0.6 ML SYRINGE SQ SCH (21:00)
--- NOTE | 2020-09-12 23:06 | P.CNNES ---
History of Present Illness Consult date: 09/12/20 Requesting physician: Nany Montgomery Reason for Consult: Syncope, Covid 19 History of Present Illness: Patient is a 70-year-old female came to the hospital today at 7:32 AM for a syncopal spell. I spoke to the patient, and also spoke to the patient's son, who is a radiologist in the hospital, in detail. Patient states that she had 2 syncopal spells. 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 Her son saw her, and felt she looked tipsy, therefore he got hold of her and prevented her a fall. He states that he tried to sit her down, but she was somewhat stiff, and was not able to be placed in the chair despite his slight attempts to push her down for her to sit. She has decreased mentation, not responding, could not move. He asked her to lift her arms which she could not do on either side, but she was able to puff up her cheeks, and close her eyes on command. In this event, she lost control of bowels. There was no tongue bite. Patient was out for a few minutes. Patient's son called the ambulance and before ambulance came, patient was back to herself, brushed her teeth, changed and came to the hospital. She underwent computed tomography scan of the head which revealed a possible meningioma as mentioned below. Her blood pressure was elevated, was started on low-dose lisinopril. Patient was sent home. 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 When he came over, she was slumped over on her side, completely "out of it", mumbling she did lose consciousness for a short while, afterwards she was slightly disoriented. Again it took 5 minutes for her to get back to herself. Patient again lost control of bowels with this event. EMS was called, and by the time EMS arrived, patient was back to her baseline. Patient's son brought her to the hospital. At present she feels fine. Vital signs on arrival blood pressure 154/73, pulse rate 67 temperature 100.6. Patient's orthostatics shows supine blood pressure 139/71, pulse rate 76, sitting was 146/68, pulse rate 76, and standing 153/63, pulse rate 81. Negative orthostatics. Patient's temperature is 100.6. EKG shows normal sinus rhythm. Carotid Doppler revealed less than 50% stenosis left ICA. No hemodynamically significant stenosis on either side. Incidentally primary solid, round, echogenic nodule measuring 2.6 cm in the right thyroid lobe. FNA can be performed. A mildly thickened and borderline sized lymph node along the right lateral neck measuring 1.0 cm short axis. Recommend clinical follow-up for any palpable abnormality. 6-8 week follow-up ultrasound can also be performed. 2-D echo showed mild concentric LVH, EF is 55-60%. Left atrium is mildly dilated. Moderate aortic valve sclerosis. Moderate mitral annular calcification. Mild mitral regurgitation.venous Doppler negative for DVT on either side. Chest x- ray showed chronic changes and cardiomegaly without new acute airspace opacity. No significant change from prior. Blood test shows normal CBC, PT/PTT, sodium 134 potassium 4.2, normal renal functions, hepatic panel, troponin, TSH and a UA. Merrill virus PCR positive. Patient also had a computed tomography scan of head on 09/09/2020, which revealed 18 mm extra-axial mass on the right aspect of the anterior falx, most consistent with a meningioma. MRI of the brain with and without contrast is recommended for further evaluation. There is no acute bleed or significant mass effect intracranially. Patient has history of diabetes since 2010. It is controlled with metformin. Trena arriaga has history of hysterectomy in 2010 for stage I endometrial cancer. Denies headaches. Review of Systems Positive for fever, denies any chest pain, abdominal pain, nausea vomiting diarrhea. Denies any double vision, loss of vision, hoarseness, sore throat dysphagia. No focal numbness tingling or weakness. No previous history of seizures. No history of headaches. All other review of systems unremarkable. Past Medical History Past Medical History: Diabetes Mellitus, Hypertension History of Any Multi-Drug Resistant Organisms: None Reported Past Surgical History: Hysterectomy Past Anesthesia/Blood Transfusion Reactions: No Reported Reaction Smoking Status: Never smoker Medications and Allergies Home Medications Medication Instructions Recorded Confirmed Type metFORMIN HCL [Glucophage] 2,000 mg PO PC-SUPPER 09/09/20 09/12/20 History lisinopriL [Zestril] 5 mg PO HS 09/12/20 09/12/20 History Allergies Allergy/AdvReac Type Severity Reaction Status Date / Time Iodinated Contrast Media Allergy Anaphylaxis Verified 09/12/20 09:19 Physical Examination - Vital Signs Vital Signs: Vital Signs Temp Pulse Pulse Pulse Pulse Pulse Resp 09/12/20 20:00 100.3 F H 77 18 09/12/20 15:44 99.0 F 81 16 09/12/20 14:46 99.8 F H 94 18 09/12/20 09:03 100.1 F H 72 18 09/12/20 08:20 76 81 76 09/12/20 07:24 100.6 F H 67 18 BP BP BP BP BP Pulse Ox 09/12/20 20:00 162/74 94 L 09/12/20 15:44 151/71 94 L 09/12/20 14:46 142/68 98 09/12/20 09:03 135/75 96 09/12/20 08:20 146/68 153/63 139/71 09/12/20 07:24 154/73 95 Intake and Output 09/12/20 09/12/20 09/12/20 06:59 14:59 22:59 Intake Total 400 Balance 400 Intake: Intake, IV Titration 400 Amount Sodium Chloride 0.9% 1, 400 000 ml @ 100 mls/hr IV . Q10H [facility] Rx#:[id number] Other: Weight 65.771 kg 65.771 kg On examination patient is an elderly [place]og[place] female, very pleasant, in no acute distress. Patient is alert and awake fully oriented to time place and person. Speech and leg with functions are normal. Attention, concentration and fund of knowledge is adequate. On cranial nerve examination pupils are round and reactive to light, visual dixon are full on confrontation, extraocular muscles are intact with no nystagmus. Face is symmetric, tongue protrudes to the midline. Palatal elevation and sensation normal, hearing and shoulder shrug normal, facial sensation is normal. On muscle strength testing there is no pronator drift and the strength is normal in arms and legs distally and prox imally reflexes are 1+ to 2 and plantars downgoing. Sensory to touch is equal. No ataxia for [id number] testing, tone and bulk of muscles normal. Gait deferred. The general exam agent is no bruit or murmur, abdomen soft nontender. Chest is clear. Peripheral pulses present. No edema Results - Laboratory Findings CBC and BMP: 09/13/20 08:30 09/13/20 08:30 Abnormal Lab Findings: Abnormal Labs 09/12/20 09/12/20 09/12/20 07:59 07:59 07:59 D-Dimer 1.00 H Sodium Glucose POC Glucose (mg/dL) Urine Protein 1+ H Ur Leukocyte Esterase Small H Urine Bacteria Rare H Urine Mucus Few H Coronavirus (PCR) Detected A 09/12/20 09/12/20 07:59 20:53 D-Dimer Sodium 134 L Glucose 110 H POC Glucose (mg/dL) 113 H Urine Protein Ur Leukocyte Esterase Urine Bacteria Urine Mucus Coronavirus (PCR) Assessment and Plan Assessment: * Syncopal spell versus seizure. Patient had some warning before the first spell, but the second one was sudden, with no warning symptoms. Patient lost bowel control with both of these spells. Orthostatics are negative. Computed tomography scan of the head revealed 18 mm meningioma in the right anterior falx. Seizures needs to be ruled out. * Merrill virus positive. * Diabetes, controlled * Thyroid nodule. Plan: * Patient had second syncopal spell versus seizure (3 days apart). We will check EEG to evaluate for any epileptiform activity. * We will also check an MRI of the brain with and without contrast for further evaluation of meningioma. * Continue telemetry monitoring. * IM to address thyroid nodule. * We will follow
[2020-09-13 06:35] LABS: Glucose,Whole Blood 88 mg/dL (75-99)
[2020-09-13] MEDS: INSULIN ASPART (NovoLOG) 100 UNIT/ML VIAL SQ SCH ×3 (07:41→17:36)
[2020-09-13] MEDS: SODIUM CHLORIDE 0.9% 1,000 ML IV SCH ×2 (07:42→17:39)
[2020-09-13] MEDS: ZINC SULFATE 220 MG CAP PO SCH (08:17)
[2020-09-13] MEDS: CHOLECALCIFEROL 25 MCG (1000 IU) TABLET PO SCH (08:17)
[2020-09-13] MEDS: ASCORBIC ACID 500 MG TAB PO SCH (08:17)
[2020-09-13] MEDS ORDERED: LORazepam 2 MG/ML INJ IV PRN ×2 (08:40)
[2020-09-13] MEDS ORDERED: ENOXAPARIN 40 MG/0.4 ML SYRINGE SQ SCH (09:00)
[2020-09-13 09:13] LABS: Basophils % (A) 0 %; Eosinophils % (A) 0 %; HCT 33.3 % (34.0-46.0); HGB 10.6 gm/dL (11.4-16.0); Hypochromasia Slight; Lymphocytes # (A) 1.7 k/uL (1.0-4.8); Lymphocytes % (A) 38 %; MCH 27.6 pg (25.0-35.0); MCHC 31.8 g/dL (31.0-37.0); MCV 86.9 fL (80.0-100.0); Mean Platelet Volume 8.3; Monocytes # (A) 0.2 k/uL (0-1.0); Monocytes % (A) 4 %; Neutrophils # (A) 2.5 k/uL (1.3-7.7); Neutrophils % (A) 56 %; Platelet Count 166 k/uL (150-450); RBC 3.84 m/uL (3.80-5.40); RDW 13.4 % (11.5-15.5); WBC 4.4 k/uL (3.8-10.6)
[2020-09-13 09:56] LABS: African American GFR (CKD) >90 (>60 ml/min/1.73 sqM); Anion Gap 8 mmol/L; Blood Urea Nitrogen 9 mg/dL (7-17); C Reactive Protein 55.5 mg/L (<10.0); Calcium 8.2 mg/dL (8.4-10.2); Carbon Dioxide 26 mmol/L (22-30); Chloride 103 mmol/L (98-107); Glucose 136 mg/dL (74-99); LDH 457 U/L (313-618); Non-African American GFR(CKD) >90 (>60 ml/min/1.73 sqM); Potassium 3.9 mmol/L (3.5-5.1); Sodium 137 mmol/L (137-145)
--- NOTE | 2020-09-13 11:53 | P.CRDCN ---
History of Present Illness Consult date: 09/13/20 History of present illness: CHIEF COMPLAINT: Syncope HISTORY OF PRESENT ILLNESS: This is a 70-year-old female with a past medical history significant for hypertension and diabetes. We have been asked to see the patient in consultation for syncope. Patient is currently admitted to the hospital and diagnosed with Covid 19. Patient apparently had 2 syncopal episodes at home. Orthostatic blood pressures were obtained and were unremarkable. DIAGNOSTICS: EKG reveals sinus mechanism. Left anterior fascicular block. Chest xray chronic changes and cardiomegaly without new acute airspace opacity. No significant change from prior exam. Lower extremity Doppler negative for DVT bilaterally Carotid Doppler: No hemodynamically significant internal carotid artery stenosis on either side Laboratory data: WBC 4.4. Hemoglobin 10.6. Platelet count 166. Sodium 137. Potassium 3.9. BUN 9. Creatinine 0.65. Magnesium 1.7. Troponin negative 1. Current home cardiac medications include lisinopril 5 mg daily REVIEW OF SYSTEMS: Thorough review of systems not completed secondary to limited evaluation/examination and due to Covid19 PHYSICAL EXAM: Thorough physical exam not completed secondary to limited evaluation/examination and due to Covid19 ASSESSMENT: Covid 19 Syncope Hypertension Diabetes mellitus PLAN: Continue telemetry monitoring Continue current cardiac medications Neurology following Patient to have event monitor placed at the time of discharge Further recommendations pending patient course Nurse practitioner note has been reviewed by physician. Signing provider agrees with the documented findings, assessment, and plan of care. Past Medical History Past Medical History: Diabetes Mellitus, Hypertension History of Any Multi-Drug Resistant Organisms: None Reported Past Surgical History: Hysterectomy Past Anesthesia/Blood Transfusion Reactions: No Reported Reaction Smoking Status: Never smoker Medications and Allergies Home Medications Medication Instructions Recorded Confirmed Type metFORMIN HCL [Glucophage] 2,000 mg PO PC-SUPPER 09/09/20 09/12/20 History lisinopriL [Zestril] 5 mg PO HS 09/12/20 09/12/20 History Allergies Allergy/AdvReac Type Severity Reaction Status Date / Time Iodinated Contrast Media Allergy Anaphylaxis Verified 09/12/20 09:19 Physical Exam Vitals: Vital Signs Temp Pulse Pulse Pulse Resp BP BP 09/13/20 08:05 99.8 F H 74 18 09/13/20 01:41 71 18 09/12/20 20:00 100.3 F H 77 18 09/12/20 15:44 99.0 F 81 16 151/71 09/12/20 14:46 99.8 F H 94 18 142/68 BP Pulse Ox 09/13/20 08:05 169/76 96 09/13/20 01:41 148/71 94 L 09/12/20 20:00 162/74 94 L 09/12/20 15:44 94 L 09/12/20 14:46 98 Intake and Output 09/12/20 09/13/20 09/13/20 22:59 06:59 14:59 Intake Total 400 Balance 400 Intake: Intake, IV Titration 400 Amount Sodium Chloride 0.9% 1, 400 000 ml @ 100 mls/hr IV . Q10H [facility] Rx#:[id number] Other: # Voids 2 Weight 65.771 kg Results 09/13/20 08:30 09/13/20 08:30 Cardiac Enzymes 09/13/20 Range/Units 08:30 Lactate Dehydrogenase 457 (313-618) U/L CBC 09/13/20 Range/Units 08:30 WBC 4.4 (3.8-10.6) k/uL RBC 3.84 (3.80-5.40) m/uL Hgb 10.6 L (11.4-16.0) gm/dL Hct 33.3 L (34.0-46.0) % Plt Count 166 (150-450) k/uL Comprehensive Metabolic Panel 09/13/20 Range/Units 08:30 Sodium 137 (137-145) mmol/L Potassium 3.9 (3.5-5.1) mmol/L Chloride 103 (98-107) mmol/L Carbon Dioxide 26 (22-30) mmol/L BUN 9 (7-17) mg/dL Creatinine 0.65 (0.52-1.04) mg/dL Glucose 136 H (74-99) mg/dL Calcium 8.2 L (8.4-10.2) mg/dL Current Medications Generic Name Dose Route Start Last Admin Trade Name Freq PRN Reason Stop Dose Admin Acetaminophen 650 mg 09/12/20 09:18 Acetaminophen Tab 325 Mg Tab PO Q6HR PRN Mild Pain or Fever > 100.5 Ascorbic Acid 500 mg 09/12/20 21:00 09/13/20 08:17 Ascorbic Acid 500 Mg Tab PO 500 mg BID [facility] Administration Cholecalciferol 125 mcg 09/12/20 15:45 09/13/20 08:17 Cholecalciferol 25 Mcg (1000 Iu) Tablet PO 125 mcg DAILY [facility] Administration Enoxaparin Sodium 40 mg 09/13/20 09:00 09/13/20 08:18 Enoxaparin 40 Mg/0.4 Ml Syringe SQ 40 mg DAILY [facility] Administration Sodium Chloride 1,000 mls @ 100 mls/hr 09/12/20 09:30 09/13/20 07:42 Saline 0.9% IV Not Given .Q10H [facility] Insulin Aspart 0 unit 09/12/20 17:30 09/13/20 07:41 Insulin Aspart (Novolog) 100 Unit/Ml Vial SQ Not Given ACHS [facility] Protocol Lisinopril 5 mg 09/13/20 21:00 Lisinopril 5 Mg Tab PO HS [facility] Lorazepam 1 mg 09/13/20 08:40 Lorazepam 2 Mg/Ml Inj IV ONCE PRN Anxiety Lorazepam 1 mg 09/13/20 08:40 Lorazepam 2 Mg/Ml Inj IV ONCE PRN Anxiety Naloxone HCl 0.2 mg 09/12/20 09:18 Naloxone 0.4 Mg/Ml 1 Ml Vial IV Q2M PRN Opioid Reversal Zinc Sulfate 220 mg 09/12/20 15:45 09/13/20 08:17 Zinc Sulfate 220 Mg Cap PO 220 mg DAILY [facility] Administration Intake and Output 09/12/20 09/13/20 09/13/20 22:59 06:59 14:59 Intake Total 400 Balance 400 Intake: Intake, IV Titration 400 Amount Sodium Chloride 0.9% 1, 400 000 ml @ 100 mls/hr IV . Q10H [facility] Rx#:[id number] Other: # Voids 2 Weight 65.771 kg 09/13/20 08:30 09/13/20 08:30
--- NOTE | 2020-09-13 12:08 | P.DS ---
Providers Date of admission: 09/12/20 09:10 Attending physician: Jennifer Valencia Consults: 09/12/20 09:19 Consult Physician Urgent Consulting Provider: Duglas Osorio Consult Reason/Comments: acute covid infection, syncope Do you want consulting provider notified?: Yes 09/12/20 15:15 Consult Physician Routine Consulting Provider: Audrey Joya Consult Reason/Comments: syncope, COviD 19 Do you want consulting provider notified?: Yes 09/12/20 15:16 Consult Physician Routine Consulting Provider: Misha Johnson Consult Reason/Comments: syncope, COVID 19 Do you want consulting provider notified?: Yes Primary care physician: [facility] Course: Patient is a pleasant 70-year-old female came in after a syncopal episode while she was praying. Patient had a similar event the about 3 days ago on Thursday and patient came to ER had a CT of the head which showed an 18 mm meningioma without any mass effect and had laboratory workup was negative at the time. Patient came back with another episode of for syncopal event which was videotaped. I did happen to watch the pictures and medial patient became pale before syncopal episode patient doesn't have any confusion after the episode episode lasted for few minutes patient having any seizure-like activity loss of bowel or bladder incontinence. Patient had a low-grade fever because of which covid 19 test was obtained which came back positive. Patient simply as a screen was negative. Patient's LFTs and TSH are within normal limits troponin is negative patient has mildly low sodium of 134 and patient is on IV fluids at this time EKG showed a normal sinus rhythm with left anterior fascicular block echocardiogram was obtained as are pending patient had an carotid Doppler which did not show significant stenosis although there is some stenosis of less than 50% on one side. And there is an incidental finding of a solitary thyroid nodule which may need a biopsy. 09/13/2020 Patient underwent extensive evaluation including the echocardiogram along with the above-mentioned the test. Echocardiogram is within normal limits multiple consultants evaluated the patient neurology evaluated the patient and neurology recommended that rule out seizures that are pending and MRI. She was a evaluated by cardiology the recommending a Holter monitor echocardiogram is within normal limits. Patient blood pressure started going up patient will restart back on the syncopal and continue with metformin. Patient's syncope is most related to dehydration, may be from Covid along with vagal stimulation and overactivity. PHYSICAL EXAMINATION: GENERAL: The patient is alert and oriented x3, not in any acute distress. Well developed, well nourished. HEENT: Pupils are round and equally reacting to light. EOMI. No scleral icterus. No conjunctival pallor. Normocephalic, atraumatic. No pharyngeal erythema. No thyromegaly. CARDIOVASCULAR: S1 and S2 present. No murmurs, rubs, or gallops. PULMONARY: Chest is clear to auscultation, no wheezing or crackles. ABDOMEN: Soft, nontender, nondistended, normoactive bowel sounds. No palpable organomegaly. MUSCULOSKELETAL: No joint swelling or deformity. EXTREMITIES: No cyanosis, clubbing, or pedal edema. NEUROLOGICAL: Gross neurological examination did not reveal any focal deficits. SKIN: No rashes. Assessment and Plan Plan: -Recurrent syncopal episode: Patient had 2 episodes and syncope secondary to above-mentioned reasons most probably -Covid 19 infection: Patient is presently not hypoxic will not need any systemic steroids at this time. -Mildly elevated d-dimer secondary to the infection -Hypertension -Incidental finding of meningioma, possibly will not require any intervention or patient will undergo MRI today -Thyroid nodule on carotid Doppler which is a solitary thyroid nodule will need an outpatient fine-needle aspiration -Type 2 diabetes mellitus patient can be resumed on metformin starting from 09/15/2020 Patient Condition at Discharge: Stable Plan - Discharge Summary Discharge Rx Participant: No New Discharge Prescriptions: No Action metFORMIN HCL [Glucophage] 2,000 mg PO PC-SUPPER lisinopriL [Zestril] 5 mg PO HS Discharge Medication List metFORMIN HCL [Glucophage] 2,000 mg PO PC-SUPPER 09/09/20 [History] lisinopriL [Zestril] 5 mg PO HS 09/12/20 [History] Follow up Appointment(s)/Referral(s): Sarah Her MD [Primary Care Provider] - 3 Days Flor Baker MD [STAFF PHYSICIAN] - 1 Week Discharge Disposition: HOME SELF-CARE
[2020-09-13 12:22] LABS: Glucose,Whole Blood 79 mg/dL (75-99)
--- NOTE | 2020-09-13 14:01 | P.PN ---
Subjective Progress Note Date: 09/13/20 Patient feels fine, offers no complaints. Denies headache. No further syncopal spells or seizures. Objective - Vital Signs Vital signs: Vital Signs Temp 99.8 F H 09/13/20 08:05 Pulse 74 09/13/20 08:05 Resp 18 09/13/20 08:05 BP 169/76 09/13/20 08:05 Pulse Ox 96 09/13/20 08:05 Intake & Output 09/12/20 09/13/20 09/13/20 18:59 06:59 18:59 Intake Total 400 Balance 400 Weight 65.771 kg Intake: Intake, IV Titration 400 Amount Sodium Chloride 0.9% 1, 400 000 ml @ 100 mls/hr IV . Q10H [facility] Rx#:[id number] Other: # Voids 2 - Exam Patient's mental status, speech and language functions are normal. Cranial nerves are normal. Muscle strength is normal. Patient walked in the room fairly well. No balance issues. - Labs CBC & Chem 7: 09/13/20 08:30 09/13/20 08:30 Labs: Abnormal Lab Results - Last 24 Hours (Table) 09/12/20 09/13/20 09/13/20 Range/Units 20:53 08:30 08:30 Hgb 10.6 L (11.4-16.0) gm/dL Hct 33.3 L (34.0-46.0) % Glucose 136 H (74-99) mg/dL POC Glucose (mg/dL) 113 H (75-99) mg/dL Calcium 8.2 L (8.4-10.2) mg/dL C-Reactive Protein 55.5 H (<10.0) mg/L Assessment and Plan Assessment: * Syncopal spell versus seizure. Patient had some warning before the first spell, but the second one was sudden, with no warning symptoms. Patient lost bowel control with both of these spells. Orthostatics are negative. Computed tomography scan of the head revealed 18 mm meningioma in the right anterior falx. Seizures needs to be ruled out. * Merrill virus positive. * Diabetes, controlled * Thyroid nodule. Plan: * Patient had second syncopal spell versus seizure (3 days apart). * EEG pending. * MRI of the brain with and without contrast pending. * Telemetry monitoring only showing sinus rhythm, which is controlled. Only one time patient has tachycardia in 115. * IM to address thyroid nodule. * We will follow after above tests are completed today. Addendum 5:39 PM: MRI of the brain with and without contrast, which revealed degenerative and nonspecific diffuse multifocal areas of abnormal signal throughout the white matter most typical of remote ischemic change. Localized 6 mm of abnormal signal within the corpus callosum anteriorly is also compatible with remote ischemia. 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 No evidence of acute ischemia. EEG was normal awake, drowsy and sleep EEG. No epileptiform activity was seen. Slightly excessive low voltage fast frequency activity likely due to medication effect. Cardiology seen the patient, and patient has been placed on event monitor. As her EEG was normal, we will hold off on antiepileptic medication. Patient to follow up with the buyer internship regarding event monitor readings. Patient also needs to follow-up with the neurosurgeon about meningioma. Recommend repeating MRI of the brain with and without contrast in 6 months to follow-up on the meningioma and corpus callosum lesion. MRI may be done earlier if clinically indicated. Also suggest 24 hours ambulatory EEG for further evaluation of any underlying epileptiform activity. Patient not to drive for 6 months, climbing ladders, operate dangerous machinery or unsupervised swimming. Discussed with patient's son in detail. Neurologically clear for discharge.
--- NOTE | 2020-09-13 14:35 | P.PN ---
Subjective Progress Note Date: 09/13/20 Principal diagnosis: COVID 19 70-year-old white female patient with past medical history of hypertension, diabetes mellitus on metformin, lifetime nonsmoker, who presented emergency department on the 09/12/2020 after having a syncopal episode last night. This is her second syncopal episode in the past several days. Patient was seen in the emergency department on 09/09/2020 with a syncopal episode. CT of the brain without contrast on 09/09/2020 revealed the 18 mm meningioma but no mass effect. Her laboratory workup and coags were unremarkable, EKG showed left axis de viation but no other acute findings, chest x-ray was unremarkable. Patient has not seen a physician in some time, she takes metformin for her diabetes but she has untreated hypertension. Patient was offered admission at that time however she was feeling better and she decided to follow up on outpatient basis. Patient was given a new prescription of lisinopril 5 mg daily at that time for elevated blood pressures. Patient had another syncopal episode last night when she was playing with her and ended up slumping over to the floor and patient had no symptoms prior to the incident. Patient did not suffer any injuries. Patient was lowered to the ground and she was unresponsive for a pproximately 5 minutes, and this was videotaped by her family, there was no seizure-like activity, patient did have an episode of stool incontinence, no black or bloody stools, her bowel movement was loose, there was no urinary incontinence, patient denied any chest pain or shortness of breath prior to the incident. Patient did not take her medications this morning. Her blood pressure was checked by her son-in-law and was low at 80/40. When the patient came to she denied any headaches or visual changes. Patient did have a fever at home, but no shortness of breath, no cough. No nausea vomiting or diarrhea. He was tested for COVID 19 and was found to be positive, influenza screen was neg ative. CBC was unremarkable, Her d-dimer was 1, sodium is 134, the rest of electrolytes and renal profile were unremarkable, glucose was 110, lactic acid was 1, troponin was less than 0.012, LFTs were within normal limits, TSH was within normal limits, urinalysis showed 1+ protein, small amount of leuks, but no evidence of infection. She is currently on room air, her pulse oximetry 95- 98%, she is in sinus mechanism, her EKG showed normal sinus rhythm with left anterior fascicular block. Echocardiogram was completed showing no hemodynamically significant internal carotid artery stenosis on either side, incidental round echogenic nodule in the right thyroid lobe. Chest x-ray showed chronic changes and cardiomegaly without new acute airspace opacity. No significant pulmonary symptoms. She is however febrile with a temp of 100.6F. She is receiving gentle IV hydration, is resting comfortably in the gurney in the emergency department awaiting a bed on selective care unit. On 09/13/2020 patient seen in follow-up on selective care unit, denies any dyspnea, no cough, no chest pain, rheumatic pulse ox is 96%, she continues to be febrile, low-grade fever, T-max of 100.6F. Denies any headaches, no seizures, no further syncopal spells, nephrology is following, MRI is scheduled for today. Patient was seen by cardiology. Patient was found to be COVID 19 positive but she has no pulmonary symptoms, white blood cell count is 4.4, hemoglobin is 10.6, d-dimer 0.51, electrolyte and renal profile are unremarkable. LDH is within normal limits at 457, and CRP is 55.5 Objective - Vital Signs Vital signs: Vital Signs Temp 99.8 F H 09/13/20 08:05 Pulse 74 09/13/20 08:05 Resp 18 09/13/20 08:05 BP 169/76 09/13/20 08:05 Pulse Ox 96 09/13/20 08:05 Intake & Output 09/12/20 09/13/20 09/13/20 18:59 06:59 18:59 Intake Total 400 240 Balance 400 240 Weight 65.771 kg Intake: Intake, IV Titration 400 Amount Sodium Chloride 0.9% 1, 400 000 ml @ 100 mls/hr IV . Q10H MARILU Rx#:[id number] Oral 240 Other: # Voids 2 - Exam GENERAL EXAM: Alert, very pleasant, 70-year-old white female, on room air, with a pulse ox of 95-98% comfortable in no apparent distress. HEAD: Normocephalic/atraumatic. EYES: Normal reaction of pupils, equal size. Conjunctiva pink, sclera white. NOSE: Clear with pink turbinates. THROAT: No erythema or exudates. NECK: No masses, no JVD, no thyroid enlargement, no adenopathy. CHEST: No chest wall deformity. Symmetrical expansion. LUNGS: Equal air entry with no crackles, wheeze, rhonchi or dullness. CVS: Regular rate and rhythm, normal S1 and S2, no gallops, no murmurs, no rubs ABDOMEN: Soft, nontender. No hepatosplenomegaly, normal bowel sounds, no guarding or rigidity. EXTREMITIES: No clubbing, no edema, no cyanosis, 2+ pulses and upper and lower extremities. MUSCULOSKELETAL: Muscle strength and tone normal. SPINE: No scoliosis or deformity SKIN: No rashes CENTRAL NERVOUS SYSTEM: Alert and oriented -3. No focal deficits, tone is normal in all 4 extremities. PSYCHIATRIC: Alert and oriented -3. Appropriate affect. Intact judgment and insight. - Labs CBC & Chem 7: 09/13/20 08:30 09/13/20 08:30 Labs: Abnormal Lab Results - Last 24 Hours (Table) 09/12/20 09/13/20 09/13/20 Range/Units 20:53 08:30 08:30 Hgb 10.6 L (11.4-16.0) gm/dL Hct 33.3 L (34.0-46.0) % Glucose 136 H (74-99) mg/dL POC Glucose (mg/dL) 113 H (75-99) mg/dL Calcium 8.2 L (8.4-10.2) mg/dL C-Reactive Protein 55.5 H (<10.0) mg/L Assessment and Plan Plan: Assessment: #1. Recurrent syncopal episodes of unclear etiology, patient was seen in the emergency department on 09/09/2020 and presenting again with recurrent syncope on all 09/12/2020 #2. Fever related to acute COVID 19 infection. No pulmonary symptoms no hy poxia at the time of presentation #3. d-dimer of 1, patient has declined to have CTA of the chest, this is nonspecific, possibly related to acute COVID 19 infection, patient was initially started on therapeutic doses of Lovenox which will be down to prophylactic Lovenox 40 mg daily #4. Hypertension, recently started on lisinopril and her last ER visit for syncope #5. 18 mm meningioma in the right aspect of the anterior falx, with the recommendation for MRI of the brain for further evaluation. No acute intracranial bleed or significant mass effect #6. Diabetes mellitus type 2 Plan: No worsening dyspnea, patient remains on room air, she is not having any pulmonary symptoms. Lower extremity Dopplers were negative. She's been evaluated by neurology and cardiology. Continue prophylactic dose of Lovenox, she can be considered for discharge home from pulmonary perspective if she is cleared by cardiology and neurology. I performed a history & physical examination of the patient and discussed their management with my nurse practitioner, Nany Montgomery. I reviewed the nurse practitioner's note and agree with the documented findings and plan of care. Lung sounds are positive for diffuse wheezes throughout the lung dixon. The findings and the impression was discussed with the patient. I attest to the documentation by the nurse practitioner. Time with Patient: Less than 30
--- NOTE | 2020-09-13 15:32 | MR ---
EXAMINATION TYPE: MR brain wo/w con DATE OF EXAM: 09/13/2020 COMPARISON: CT scan brain 09/09/2020 HISTORY: Seizure versus syncope TECHNIQUE: Multiplanar, multisequence images of the brain and brainstem is performed without and with IV contras t, utilizing 6.5 mL intravenous Gadavist . FINDINGS: Diffusion weighted images demonstrate no evidence of a recent infarct or other diffusion ab normality. There is mild generalized degenerative change with multiple diffuse bilateral subcentimeter areas of abnormal signal throughout the white matter. Approximately 50 lesions seen. There is a more localized focal area of abnormal signal anterior to the left lateral ventricle within the corpus callosum jazmín uring 6 mm. This appears low in signal on T1 sagittal image with no enhancement and therefore felt to be most compatible with remote ischemia. The vascular somewhat diminutive in size including the vertebral basilar system was confirmed sometim es be associated with vertebral basilar insufficiency. Enhancement along the right occipital lobe likely is artifactual in combination with vascular etiolog y. No abnormal signal seen on all remaining sequences. There is a 1.6 x 1.2 x 1.8 cm interhemispheric fissure extra-axial mass compatible with meningioma pa rasagittal to the right area there is mild mass effect and displacement the adjacent cortex. No midli ne shift of the ventricular system. A tiny punctate areas of abnormal signal signal seen on T2 within the hippocampal region bilaterally of doubtful significance. Temporal horns are symmetric in size with no evidence of cortical atrophy. Faint punctate areas of abnormal signal involving the katia most likely on the basis of tiny areas of remote ischemia. Partially empty sella turcica. Low signal within the basal ganglia bilaterally compatible with areas of calcification. Visualized dural venous sinuses demonstrate normal enhancement. Craniocervical junction maintained. Partially empty sella turcica noted. There is moderate changes of chronic sinusitis. Orbits are symmetric in size with trace amount of fluid surrounding the optic ner ves likely physiologic. Optic chiasm appears to have a normal appearance. There is a 5 mm area of intermediate signal within the fossa of Rosenmuller may represent an area of mucosal thickening. No enhancement and therefore mucosal lesion felt unlikely. Small complicated Thor nwaldt cyst in the differential diagnosis. Correlate clinically IMPRESSION: 1. Degenerative and nonspecific diffuse multifocal areas of abnormal signal throughout the white ruben er most typical of remote ischemic change. Localized 6 mm of abnormal signal within the corpus callos um anteriorly is also compatible with remote ischemia. 2. Parasagittal interhemispheric fissure meningioma measuring 1.6 x 1.2 x 1.8 cm with mild mass effec t upon the adjacent cortex but no evidence of midline shift. 3. No evidence of acute ischemia.
[2020-09-13 16:06] VITALS: BP 157/74; PULSE 81; TEMP 101.5
[2020-09-13 17:32] LABS: Glucose,Whole Blood 73 mg/dL (75-99)
--- NOTE | 2020-09-13 17:41 | EEG ---
ELECTROENCEPHALOGRAM REPORT DATE OF SERVICE: 09/13/2020. PREAMBLE: This is a 70-year-old female with new-onset syncope versus seizure. This study is performed to evaluate for any epileptiform activity. EEG FINDINGS: This is a 21-channel routine EEG recording in a patient utilizing 10/20 international system with referential and bipolar montages. Background consists of well-developed, well-regulated, moderate-voltage activity in 10-12 hertz alpha. Background is posterior-dominant and reactive to eye opening and closing. Slightly excessive low- voltage fast frequency beta activity was also seen. Patient was drowsy with presence of bilaterally symmetric theta frequency rhythm. Stage II sleep was attained with the presence of a lot of vertex waves and sleep spindles. Photic stimulation was not performed. No focal or generalized epileptiform activity was seen. EKG channel showed no arrhythmia. IMPRESSION: This is a normal awake, drowsy and sleep EEG. No focal, lateralized or epileptiform activity was seen. The presence of excessive amount of low-voltage fast frequency beta is suggestive of medication effect. MMODL / IJN: [id number] /
[2020-09-13] MEDS ORDERED: lisinopriL 5 MG TAB PO SCH (21:00)
== END 2020-09-13 19:02 | disposition home or self-care (01) | DRG 179 ==
LOC: EC 07:22 → 4SSUR 09:10 → 3SCARD 11:14
PROVIDERS: ADMIT Hospitalist; ATTEND Hospitalist
DX: U07.1 COVID-19 (principal); D32.9 Benign neoplasm of meninges, unspecified; I10 Essential (primary) hypertension; E04.1 Nontoxic single thyroid nodule; E11.9 Type 2 diabetes mellitus without complications; Z79.84 Long term (current) use of oral hypoglycemic drugs
CPT/HCPCS: 36415; 70553; 71045; 80048; 80053; 81001; 83605; 83615; 83735; 84443; 84484; 85025; 85379; 85610; 85730; 86140; 87502; 87635; 93005; 93270; 93306; 93880; 93970; 95819

== ENCOUNTER → 2020-11-14 | Outpatient (CLI) | payer MEDICARE ==
--- NOTE | 2020-11-15 07:15 | US ---
EXAMINATION TYPE: US thyroid st tissue head/neck DATE OF EXAM: 11/14/2020 COMPARISON: NONE CLINICAL HISTORY: E04.1 Thyroid nodule. GLAND SIZE: Right Lobe: 4.1 x 2.1 x 2.6 cm Overall Parenchyma: heterogenous Left Lobe: 4.9 x 2.0 x 1.6 cm Overall Parenchyma: heterogeneous Isthmus Thickness: 0.5 cm NODULES RIGHT: # of nodules measured on right: 1 1. 2.5 X 1.8 x 2.2 cm, mid mid, mixed cystic and solid, hypoechoic nodule, which is wider than tall , with smooth margins, without echogenic foci. Prior size: no prior LEFT: # of nodules measured on left: 0 Heterogeneous without specific nodule seen. ISTHMUS: # of nodules measured in the isthmus: 0 Bilateral neck scanned, no evidence of lymphadenopathy. IMPRESSION: Partially cystic and partially solid nodule right thyroid lobe. Consider tissue diagnosis. Glandular heterogeneity.
== END | disposition home or self-care (01) ==
LOC: RADUSWWP 17:02
PROVIDERS: ATTEND Family Medicine
DX: E04.1 Nontoxic single thyroid nodule (principal)
CPT/HCPCS: 76536

== ENCOUNTER 2021-01-01 12:54 | Day surgery (SDC) | payer MEDICARE ==
[2021-01-01 13:37] VITALS: TEMP 98.6
[2021-01-01 14:28] VITALS: RESP 16
[2021-01-01 14:59] VITALS: BP 176/80; PULSE 80
--- NOTE | 2021-01-01 15:11 | US ---
ULTRASOUND GUIDED FNA THYROID BIOPSY: CLINICAL HISTORY: Request for right thyroid nodule FNA FINDINGS: The procedure was explained to the patient. The risks, complications, benefits and alternatives were discussed and any questions were answered. Informed consent was obtained. Patient was placed supin e on the ultrasound table and prepped and draped in the usual sterile fashion. Utilizing a 25 gauge needle, five passes were made into the requested right thyroid nodule. Patient was stable throughout the procedure. Pathology is pending. All elements of maximal barrier technique were utilized. IMPRESSION: 1. Successful ultrasound guided FNA thyroid biopsy.
== END 2021-01-01 14:55 | disposition home or self-care (01) ==
LOC: RADPROMAIN 12:54
PROVIDERS: ATTEND Otolaryngology
DX: E04.1 Nontoxic single thyroid nodule (principal)
CPT/HCPCS: 10005; 88173; 88305

== ENCOUNTER → 2021-01-01 | Outpatient (CLI) | payer MEDICARE ==
[2021-01-01 20:27] LABS: Thyroid Peroxidase Antibodies 211.8 U/mL (0.0-60.0)
== END | disposition home or self-care (01) ==
LOC: LABWHC1 14:58
PROVIDERS: ATTEND Otolaryngology
DX: E04.1 Nontoxic single thyroid nodule (principal)
CPT/HCPCS: 36415; 84443; 86376; 86800

== ENCOUNTER → 2021-04-10 | Outpatient (CLI) | payer MEDICARE ==
--- NOTE | 2021-04-11 04:31 | MR ---
EXAMINATION TYPE: MR brain wo/w con DATE OF EXAM: 04/10/2021 COMPARISON: 09/13/2020 HISTORY: Meningioma and white matter changes, compare to prior 09-13-20. CONTRAST: Standard multiplanar, multisequence MRI departmental protocol utilizing 6 mL intravenous Gadavist vadim olinium contrast. Multiplanar multiecho imaging of the brain without and with IV contrast. There is cerebral cortical atrophy. There is no mass effect nor midline shift. Diffusion images show area of mixed signal in the medial right posterior frontal lobe near the cerebral falx. This measures 1.6 cm Which shows dense uniform enhancement on the contrast images and is probably extra-axial. On the T2 and FLAIR images there are scattered areas of increased signal in the periventricular white matter. Total number is approximately 20 and most of these measure less than 5 mm. There is normal enhancement of the venous sinuses. Brainstem is intact. There is no evidence of corti adeola infarct. Corpus callosum is intact. Sella turcica appears normal. There is no evidence of orbital mass IMPRESSION: Densely enhancing extra-axial right posterior frontal lobe mass adjacent to the falx and consistent w ith falx meningioma. No change. White matter signal changes consistent with chronic small vessel ischemia or demyelinating disease wi thout change. No acute intracranial abnormality. Mild anterior ethmoid sinusitis without change.
== END | disposition home or self-care (01) ==
LOC: RADMRIMAIN 16:53
PROVIDERS: ATTEND Neurological Surgery
DX: D32.9 Benign neoplasm of meninges, unspecified (principal)
CPT/HCPCS: 70553; A9585

== ENCOUNTER → 2022-12-16 | Outpatient (CLI) | payer MEDICARE ==
--- NOTE | 2022-12-17 18:30 | BD ---
EXAMINATION TYPE: Axial Bone Density DATE OF EXAM: 12/16/2022 CLINICAL HISTORY: 72 years old Female. ICD-10 CODE: Z12.820 SCREENING FOR OSTEOPOROSIS Height: 62.34 Weight: 145 FRAX RISK QUESTIONS: Family History (Parent hip fracture): yes, mother History of Fracture in Adulthood: no Secondary Osteoporosis: no Rheumatoid Arthritis: no RISK FACTORS HISTORY OF: Family History of Osteoporosis: no Active: yes Diet low in dairy products/other sources of calcium: no Postmenopausal woman: yes Lost more than 2 inches in height since high school: yes was 65 Frequent falls: no Poor Health: no MEDICATIONS: Additional Medications: yes HBP meds, diabetic meds Additional History: yes vit d, cancer uterine in 2007 EXAM MEASUREMENTS: Bone mineral densitometry was performed using the [employer] System. Bone mineral density as measured about the Lumbar spine is: ----- L1-L4(G/cm2): 0.894 T Score Values are as follows: ----- L1: -2.2 ----- L2: -2.5 ----- L3: -2.3 ----- L4: -2.6 ----- L1-L4: -2.4 Z Score Values are as follows: ----- L1: -0.5 ----- L2: -0.9 ----- L3: -0.7 ----- L4: -0.9 ----- L1-L4: -0.7 Bone mineral density baseline Bone mineral density about the R hip (g/cm2): 0.821 Bone mineral density about the L hip (g/cm2): 0.845 T Score values are as follows: -----R Neck: -2.3 -----L Neck: -2.4 -----R Total: -1.5 -----L Total: -1.3 Z Score values are as follows: -----R Neck: -0.5 -----L Neck: -0.6 -----R Total: 0.1 -----L Total: 0.3 Bone mineral density baseline FRAX%s: The graph provided illustrates a 15.1% chance for a major osteoporotic fx and a 4.1% chance f or the hips probability for fx in 10 years time. IMPRESSION: Osteopenia (T Score between -2.5 and -1). There is slightly increased risk of fracture and the patient may be considered for treatment. Re-Screen 2-5 years. NOTE: T-SCORE=SD OF THE YOUNG ADULT MEAN.
== END | disposition home or self-care (01) ==
LOC: RADBDWWP 15:02
PROVIDERS: ATTEND Family Medicine
DX: Z13.820 Encounter for screening for osteoporosis (principal); M81.0 Age-related osteoporosis without current pathological fracture; M85.89 Other specified disorders of bone density and structure, multiple sites; Z78.0 Asymptomatic menopausal state
CPT/HCPCS: 77080

== ENCOUNTER 2023-11-13 06:32 | Inpatient (IN) | payer MEDICARE ==
--- NOTE | 2023-11-13 07:00 | ED ---
Lower Extremity Injury HPI - General Chief Complaint: Extremity Injury, Lower Stated Complaint: Fall-unable to walk Time Seen by Provider: 11/13/23 06:38 Source: patient, family, RN notes reviewed Mode of arrival: wheelchair Limitations: no limitations - History of Present Illness Initial Comments: 73-year-old female presents emergency department with chief complaint of fall. Patient had a mechanical trip and fall yesterday she fell onto her right hip patient states she has severe pain with weightbearing and certain movements. Patient denies any prior hip surgeries she states she has minimal pain at rest she states it feels like it is in her right groin, pelvis region. - Related Data Home Medications Medication Instructions Recorded Confirmed metFORMIN HCL [Glucophage] 2,000 mg PO PC-SUPPER 09/09/20 01/01/21 lisinopriL [Zestril] 10 mg PO BID 09/12/20 01/01/21 Aspirin [Adult Low Dose Aspirin EC] 81 mg PO DAILY 12/24/20 01/01/21 Allergies Allergy/AdvReac Type Severity Reaction Status Date / Time Iodinated Contrast Media Allergy Anaphylaxis Verified 01/01/21 13:34 Review of Systems ROS Statement: Those systems with pertinent positive or pertinent negative responses have been documented in the HPI. ROS Other: All systems not noted in ROS Statement are negative. Past Medical History Past Medical History: Diabetes Mellitus, Hypertension, Thyroid Disorder History of Any Multi-Drug Resistant Organisms: None Reported Past Surgical History: Hysterectomy Additional Past Surgical History / Comment(s): cataract sugery -ramiro, breast biopsy -pt unsure of side Past Anesthesia/Blood Transfusion Reactions: No Reported Reaction Past Psychological History: No Psychological Hx Reported Smoking Status: Never smoker Past Alcohol Use History: None Reported Past Drug Use History: None Reported General Exam Limitations: no limitations General appearance: alert, in no apparent distress Head exam: Present: atraumatic, normocephalic, normal inspection Respiratory exam: Present: normal lung sounds bilaterally. Absent: respiratory distress, wheezes, rales, rhonchi, stridor Cardiovascular Exam: Present: regular rate, normal rhythm, normal heart sounds. Absent: systolic murmur, diastolic murmur, rubs, gallop, clicks Extremities exam: Present: other (Right hip mild tenderness, pain with internal rotation minimal external rotation discomfort, pain with hip flexion) Course Vital Signs 11/13/23 06:32 Temperature 98.7 F Pulse Rate 88 Respiratory 16 Rate Blood Pressure 179/73 O2 Sat by Pulse 98 Oximetry Medical Decision Making - Medical Decision Making Was pt. sent in by a medical professional or institution (GRACE Meza, TOOL TURRET LATHE SET UP OPERATOR, urgent care, hospital, or fci...) When possible be specific @ -No Did you speak to anyone other than the patient for history (EMS, parent, family, police, friend...)? What history was obtained from this source @ -No Did you review nursing and triage notes (agree or disagree)? Why? @ -I reviewed and agree with nursing and triage notes Were old charts reviewed (outside hosp., previous admission, EMS record, old EKG, old radiological studies, urgent care reports/EKG's, fci records)? Report findings @ -No old charts were reviewed Differential Diagnosis (chest pain, altered mental status, abdominal pain women, abdominal pain men, vaginal bleeding, weakness, fever, dyspnea, syncope, headache, dizziness, GI bleed, back pain, seizure, CVA, palpatations, mental health, musculoskeletal)? @ -Fall, hip contusion, hip fracture, pelvis fracture EKG interpreted by me (3pts min.). @ -As above X-rays interpreted by me (1pt min.). @ -Right hip x-ray, pelvis x-ray showing impacted subcapital fracture CT interpreted by me (1pt min.). @ -CT right hip showing right hip fracture U/S interpreted by me (1pt. min.). @ -None done What testing was considered but not performed or refused? (CT, X-rays, U/S, labs)? Why? @ -None What meds were considered but not given or refused? Why? @ -None Did you discuss the management of the patient with other professionals (professionals i.e. GRACE Meza, TOOL TURRET LATHE SET UP OPERATOR, lab, RT, psych nurse, social worker school, charge aide, teacher, seaman officer, case assistant)? Give summary @ -Discussed case with orthopedic surgeon Dr. Underwood who accepts admission, medical consult and requested CT Was smoking cessation discussed for >3mins.? @ -No Was critical care preformed (if so, how long)? @ -No Were there social determinants of health that impacted care today? How? (Homelessness, low income, unemployed, alcoholism, drug addiction, transportation, low edu. Level, literacy, decrease access to med. care, prison, rehab)? @ -No Was there de-escalation of care discussed even if they declined (Discuss DNR or withdrawal of care, Hospice)? DNR status @ -No What co-morbidities impacted this encounter? (DM, HTN, Smoking, COPD, CAD, Cancer, CVA, ARF, Chemo, Hep., AIDS, mental health diagnosis, sleep apnea, morbid obesity)? @ -None Was patient admitted / discharged? Hospital course, mention meds given and route, prescriptions, significant lab abnormalities, going to OR and other pertinent info. @ -Admitted to orthopedic surgeon for right hip fracture will have medicine consult for surgical clearance Undiagnosed new problem with uncertain prognosis? @ -No Drug Therapy requiring intensive monitoring for toxicity (Heparin, Nitro, Insulin, Cardizem)? @ -No Were any procedures done? @ -No Diagnosis/symptom? @ -Fall, right hip fracture Acute, or Chronic, or Acute on Chronic? @ -Acute Uncomplicated (without systemic symptoms) or Complicated (systemic symptoms)? @ -Uncomplicated Side effects of treatment? @ -No Exacerbation, Progression, or Severe Exacerbation? @ -No Poses a threat to life or bodily function? How? (Chest pain, [place], [place], pneumonia, PE, COPD, DKA, ARF, appy, cholecystitis, CVA, Diverticulitis, Homicidal, Hussein icidal, threat to staff... and all critical care pts) @ -Yes low risk surgical risk - Lab Data Result diagrams: 11/13/23 07:55 11/13/23 07:55 Lab Results 11/13/23 11/13/23 11/13/23 Range/Units 07:55 07:55 07:55 WBC 9.5 (3.8-10.6) k/uL RBC 4.15 (3.80-5.40) m/uL Hgb 11.3 L (11.4-16.0) gm/dL Hct 36.9 (34.0-46.0) % MCV 88.9 (80.0-100.0) fL MCH 27.3 (25.0-35.0) pg MCHC 30.7 L (31.0-37.0) g/dL RDW 14.9 (11.5-15.5) % Plt Count 279 (150-450) k/uL MPV 8.1 Neutrophils % 64 % Lymphocytes % 24 % Monocytes % 5 % Eosinophils % 4 % Basophils % 1 % Neutrophils # 6.1 (1.3-7.7) k/uL Lymphocytes # 2.3 (1.0-4.8) k/uL Monocytes # 0.5 (0-1.0) k/uL Eosinophils # 0.4 (0-0.7) k/uL Basophils # 0.1 (0-0.2) k/uL Hypochromasia Slight PT 9.9 L (10.0-12.5) sec INR 0.9 (<1.2) APTT 23.7 (22.0-30.0) sec Sodium 142 (137-145) mmol/L Potassium 4.3 (3.5-5.1) mmol/L Chloride 109 H (98-107) mmol/L Carbon Dioxide 28 (22-30) mmol/L Anion Gap 5 mmol/L BUN 19 H (7-17) mg/dL Creatinine 0.74 (0.52-1.04) mg/dL Est GFR (CKD-EPI)AfAm >90 (>60 ml/min/1.73 sqM) Est GFR (CKD-EPI)NonAf 81 (>60 ml/min/1.73 sqM) Glucose 156 H (74-99) mg/dL Calcium 9.2 (8.4-10.2) mg/dL Total Bilirubin 0.4 (0.2-1.3) mg/dL AST 22 (14-36) U/L ALT 16 (4-34) U/L Alkaline Phosphatase 95 (38-126) U/L Total Protein 7.6 (6.3-8.2) g/dL Albumin 4.1 (3.5-5.0) g/dL Urine Color Urine Appearance (Clear) Urine pH (5.0-8.0) Ur Specific [place] (1.001-1.035) Urine Protein (Negative) Urine Glucose (UA) (Negative) Urine Ketones (Negative) Urine Blood (Negative) Urine Nitrite (Negative) Urine Bilirubin (Negative) Urine Urobilinogen (<2.0) mg/dL Ur Leukocyte Esterase (Negative) Urine WBC (0-5) /hpf 11/13/23 Range/Units 08:10 WBC (3.8-10.6) k/uL RBC (3.80-5.40) m/uL Hgb (11.4-16.0) gm/dL Hct (34.0-46.0) % MCV (80.0-100.0) fL MCH (25.0-35.0) pg MCHC (31.0-37.0) g/dL RDW (11.5-15.5) % Plt Count (150-450) k/uL MPV Neutrophils % % Lymphocytes % % Monocytes % % Eosinophils % % Basophils % % Neutrophils # (1.3-7.7) k/uL Lymphocytes # (1.0-4.8) k/uL Monocytes # (0-1.0) k/uL Eosinophils # (0-0.7) k/uL Basophils # (0-0.2) k/uL Hypochromasia PT (10.0-12.5) sec INR (<1.2) APTT (22.0-30.0) sec Sodium (137-145) mmol/L Potassium (3.5-5.1) mmol/L Chloride (98-107) mmol/L Carbon Dioxide (22-30) mmol/L Anion Gap mmol/L BUN (7-17) mg/dL Creatinine (0.52-1.04) mg/dL Est GFR (CKD-EPI)AfAm (>60 ml/min/1.73 sqM) Est GFR (CKD-EPI)NonAf (>60 ml/min/1.73 sqM) Glucose (74-99) mg/dL Calcium (8.4-10.2) mg/dL Total Bilirubin (0.2-1.3) mg/dL AST (14-36) U/L ALT (4-34) U/L Alkaline Phosphatase (38-126) U/L Total Protein (6.3-8.2) g/dL Albumin (3.5-5.0) g/dL Urine Color Colorless Urine Appearance Clear (Clear) Urine pH 6.0 (5.0-8.0) Ur Specific [place] 1.008 (1.001-1.035) Urine Protein Negative (Negative) Urine Glucose (UA) Negative (Negative) Urine Ketones Negative (Negative) Urine Blood Negative (Negative) Urine Nitrite Negative (Negative) Urine Bilirubin Negative (Negative) Urine Urobilinogen <2.0 (<2.0) mg/dL Ur Leukocyte Esterase Moderate H (Negative) Urine WBC 12 H (0-5) /hpf - EKG Data -: EKG Interpreted by Me EKG Comments: EKG performed at 8: 46 sinus rhythm with first-degree block rate of 82 OK 212 QRS 101 QT/QTc 396/435 Disposition Clinical Impression: Closed right hip fracture Disposition: ADMITTED IP TO THIS HOSP Condition: Stable Time of Disposition: 07:43
--- NOTE | 2023-11-13 07:18 | XR ---
EXAMINATION TYPE: XR Hip 2 views RT and AP Pelvis DATE OF EXAM: 11/13/2023 COMPARISON: NONE HISTORY: 73-year-old female pain after fall FINDINGS: There is an impacted and mildly angulated subcapital right femoral neck fracture without fr ank displacement. SI joints appear symmetric and intact as does the pubic symphysis. Mild degenerativ e spurring at both hips. IMPRESSION: Impacted and mildly angulated subcapital right femoral neck fracture. Mild degenerative s purring at both hips.
[2023-11-13] MEDS ORDERED: NALOXONE 0.4 MG/ML 1 ML VIAL IV PRN (07:41)
[2023-11-13] MEDS ORDERED: ONDANSETRON 4 MG/2 ML VIAL IVP PRN (07:41)
--- NOTE | 2023-11-13 08:10 | XR ---
EXAMINATION TYPE: XR chest 1V DATE OF EXAM: 11/13/2023 COMPARISON: 09/12/2020 HISTORY: 73-year-old female preoperative evaluation TECHNIQUE: Single frontal view of the chest is obtained. FINDINGS: Heart is borderline in size. Aorta and pulmonary vasculature within normal limits. Hazy ramakrishna ng densities related to overlying soft tissue. No consolidation or pleural effusion. IMPRESSION: Borderline heart size. No acute process seen.
[2023-11-13 08:17] LABS: INR 0.9 (<1.2); Partial Thromboplastin Time 23.7 sec (22.0-30.0); Prothrombin Time 9.9 sec (10.0-12.5)
[2023-11-13 08:21] LABS: Appearance,Urine Clear (Clear); Bilirubin,Urine Negative (Negative); Blood,Urine Negative (Negative); Color,Urine Colorless; Glucose,Urine (UA) Negative (Negative); Ketones,Urine Negative (Negative); Leukocyte Esterase,Urine Moderate (Negative); Nitrite,Urine Negative (Negative); Protein,Urine Negative (Negative); Specific Gravity,Urine 1.008 (1.001-1.035); Urobilinogen,Urine <2.0 mg/dL (<2.0); WBC,Urine 12 /hpf (0-5)
[2023-11-13 08:24] LABS: ALT 16 U/L (4-34); AST 22 U/L (14-36); African American GFR (CKD) >90 (>60 ml/min/1.73 sqM); Albumin 4.1 g/dL (3.5-5.0); Alkaline Phosphatase 95 U/L (38-126); Anion Gap 5 mmol/L; Blood Urea Nitrogen 19 mg/dL (7-17); Carbon Dioxide 28 mmol/L (22-30); Chloride 109 mmol/L (98-107); Glucose 156 mg/dL (74-99); Non-African American GFR(CKD) 81 (>60 ml/min/1.73 sqM); Potassium 4.3 mmol/L (3.5-5.1); Sodium 142 mmol/L (137-145); Total Bilirubin 0.4 mg/dL (0.2-1.3); Total Protein 7.6 g/dL (6.3-8.2)
[2023-11-13 08:26] LABS: Calcium 9.2 mg/dL (8.4-10.2)
[2023-11-13 08:30] LABS: Basophils # (A) 0.1 k/uL (0-0.2); Basophils % (A) 1 %; Eosinophils # (A) 0.4 k/uL (0-0.7); Eosinophils % (A) 4 %; HCT 36.9 % (34.0-46.0); HGB 11.3 gm/dL (11.4-16.0); Hypochromasia Slight; Lymphocytes # (A) 2.3 k/uL (1.0-4.8); Lymphocytes % (A) 24 %; MCH 27.3 pg (25.0-35.0); MCHC 30.7 g/dL (31.0-37.0); MCV 88.9 fL (80.0-100.0); Mean Platelet Volume 8.1; Monocytes # (A) 0.5 k/uL (0-1.0); Monocytes % (A) 5 %; Neutrophils # (A) 6.1 k/uL (1.3-7.7); Neutrophils % (A) 64 %; Platelet Count 279 k/uL (150-450); RBC 4.15 m/uL (3.80-5.40); RDW 14.9 % (11.5-15.5); WBC 9.5 k/uL (3.8-10.6)
--- NOTE | 2023-11-13 08:48 | CT ---
EXAMINATION TYPE: CT hip RT wo con DATE OF EXAM: 11/13/2023 COMPARISON: X-ray 11/13/2023 HISTORY: right hip pain CT DLP: 490.9 mGycm Automated exposure control for dose reduction was used. FINDINGS: Findings suspicious for impacted subcapital fracture of the right hip. Moderate hypertrophic arthropa thy of the hip correlate for femoral acetabular impingement. Remaining osseous structures intact. SI joint vacuum arthropathy. IMPRESSION: SUSPICIOUS FOR IMPACTED MILDLY DISPLACED SUBCAPITAL FRACTURE RIGHT FEMUR. CORRELATE CLINICALLY.
[2023-11-13] MEDS: amLODIPine 5 MG TAB PO SCH (09:05)
[2023-11-13] MEDS: lisinopriL 10 MG TAB PO SCH (09:08)
--- NOTE | 2023-11-13 10:56 | P.HPOR ---
History of Present Illness H&P Date: 11/13/23 Chief Complaint: Right hip fracture. This is a 73-year-old female admitted through the emergency department this morning with complaint of right hip pain after falling on 11/11/2023. She was brought in by family for x-rays and was found to have an impacted femoral neck fracture of the right hip. She is admitted to our service for surgical intervention and care. Past Medical History Past Medical History: Diabetes Mellitus, Hypertension, Thyroid Disorder History of Any Multi-Drug Resistant Organisms: None Reported Past Surgical History: Hysterectomy Additional Past Surgical History / Comment(s): cataract sugery -ramiro, breast biopsy -pt unsure of side Past Anesthesia/Blood Transfusion Reactions: No Reported Reaction Past Psychological History: No Psychological Hx Reported Smoking Status: Never smoker Past Alcohol Use History: None Reported Past Drug Use History: None Reported Medications and Allergies Home Medications Medication Instructions Recorded Confirmed Type lisinopriL [Zestril] 10 mg PO BID 09/12/20 11/13/23 History Aspirin EC [Ecotrin Low Dose] 81 mg PO DAILY 11/13/23 11/13/23 History Multivitamins, Thera [Multivitamin 1 tab PO DAILY 11/13/23 11/13/23 History (formulary)] amLODIPine [Norvasc] 5 mg PO DAILY 11/13/23 11/13/23 History metFORMIN HCL 500 mg PO DAILY PRN 11/13/23 11/13/23 History Allergies Allergy/AdvReac Type Severity Reaction Status Date / Time Iodinated Contrast Media Allergy Anaphylaxis Verified 11/13/23 08:55 Physical Examination This is a pleasant 73-year-old female in no acute distress. She is alert and oriented x 3. She is evaluated at bedside in the emergency department. No family is present at bedside at this time. Exam of the head neck reveals no obvious deformity. She has full cervical spine motion without difficulty or pain. She is nontender over the cervical spine or paraspinal musculature. Exam of the upper extremities is unremarkable. She has full shoulder, elbow, wrist and finger motion bilaterally. Neurovascular status to the upper extremities is intact. Exam of the lower extremities reveals no obvious deformity. There is no rota tional deformity or shortening. She has full foot and ankle motion without difficulty or pain. There is mild pain with internal and external rotation of the right hip. Neurovascular status to the lower extremities is intact. Results X-rays and CT scan I reviewed which reveal an impacted femoral neck fracture in slight valgus. There is minimal arthritic changes noted to the hip joint. No other fractures or bony abnormalities are noted. - Labs Labs: Abnormal Lab Results - Last 24 Hours (Table) 11/13/23 11/13/23 11/13/23 Range/Units 07:55 07:55 07:55 Hgb 11.3 L (11.4-16.0) gm/dL MCHC 30.7 L (31.0-37.0) g/dL PT 9.9 L (10.0-12.5) sec Chloride 109 H (98-107) mmol/L BUN 19 H (7-17) mg/dL Glucose 156 H (74-99) mg/dL Ur Leukocyte Esterase (Negative) Urine WBC (0-5) /hpf 11/13/23 Range/Units 08:10 Hgb (11.4-16.0) gm/dL MCHC (31.0-37.0) g/dL PT (10.0-12.5) sec Chloride (98-107) mmol/L BUN (7-17) mg/dL Glucose (74-99) mg/dL Ur Leukocyte Esterase Moderate H (Negative) Urine WBC 12 H (0-5) /hpf H & H 11/13/23 Range/Units 07:55 Hgb 11.3 L (11.4-16.0) gm/dL Hct 36.9 (34.0-46.0) % Coagulation 11/13/23 Range/Units 07:55 INR 0.9 (<1.2) Result Diagrams: 11/13/23 07:55 11/13/23 07:55 Assessment and Plan (1) Femoral neck fracture Current Visit: Yes Status: Acute Code(s): S72.009A - FRACTURE OF UNSP PART OF NECK OF UNSP FEMUR, INIT SNOMED Code(s): 0358625 (2) Closed right hip fracture Current Visit: Yes Status: Acute Code(s): S72.001A - FRACTURE OF UNSP PART OF NECK OF RIGHT FEMUR, INIT SNOMED Code(s): 901795869 Plan: The clinical and radiographic findings are discussed with the patient. Treat ment options are discussed including surgical versus nonsurgical treatments. The operative options include total hip arthroplasty versus a in situ pinning of the femoral head. The patient will discuss options with her children as well as with Dr. Underwood. We are planning surgery either later today or tomorrow morning. It is discussed that she may require a short stay in inpatient rehab postoperatively.
[2023-11-13 11:42] LABS: Glucose,Whole Blood 84 mg/dL (70-110)
[2023-11-13 16:34] LABS: Glucose,Whole Blood 183 mg/dL (70-110)
--- NOTE | 2023-11-13 17:46 | P.CONS ---
History of Present Illness - Reason for Consult Consult date: 11/13/23 Medical clearance for surgery - Chief Complaint Fall/right hip pain - History of Present Illness 73-year-old female, history of diabetes mellitus type 2, hypertension, presents emergency department with chief complaint of fall. Patient had a mechanical trip and fall yesterday she fell onto her right hip patient states she has severe pain with weightbearing and certain movements. Patient denies any prior hip surgeries she states she has minimal pain at rest she states it feels like it is in her right groin, pelvis region. --Patient reports no history of chest pain or shortness of breath; reports he is fairly active taking care of grandchildren --Regularly follows up with PCP; has never had any cardiac issues Blood work completed in ED reveals a WBC of 9.5, hemoglobin of 11.3 and platelet count of 279, sodium 142, potassium 4.3, BUNs/creatinine of 19/0.74, blood glucose of 156, UA is unremarkable EKG reveals sinus rhythm with first-degree AV block Right hip x-ray, pelvis x-ray showing impacted subcapital fracture CT hip reveals impacted mildly displaced subcapital fracture right femur Review of Systems REVIEW OF SYSTEMS: CONSTITUTIONAL: No fever, no malaise, no fatigue. HEENT: No recent visual problems or hearing problems. Denied any sore throat. CARDIOVASCULAR: No chest pain, orthopnea, PND, no palpitations, no syncope. PULMONARY: No shortness of breath, no cough, no hemoptysis. GASTROINTESTINAL: No diarrhea, no nausea, no vomiting, no abdominal pain. NEUROLOGICAL: No headaches, no weakness, no numbness. HEMATOLOGICAL: Denies any bleeding or petechiae. GENITOURINARY: Denies any burning micturition, frequency, or urgency. MUSCULOSKELETAL/RHEUMATOLOGICAL: Denies any joint pain, swelling, or any muscle pain. ENDOCRINE: Denies any polyuria or polydipsia. The rest of the 14-point review of systems is negative. Past Medical History Past Medical History: Diabetes Mellitus, Hypertension, Thyroid Disorder History of Any Multi-Drug Resistant Organisms: None Reported Past Surgical History: Hysterectomy Additional Past Surgical History / Comment(s): cataract sugery -ramiro, breast biopsy -pt unsure of side Past Anesthesia/Blood Transfusion Reactions: No Reported Reaction Past Psychological History: No Psychological Hx Reported Smoking Status: Never smoker Past Alcohol Use History: None Reported Past Drug Use History: None Reported Medications and Allergies Home Medications Medication Instructions Recorded Confirmed Type lisinopriL [Zestril] 10 mg PO BID 09/12/20 11/13/23 History Aspirin EC [Ecotrin Low Dose] 81 mg PO DAILY 11/13/23 11/13/23 History Multivitamins, Thera [Multivitamin 1 tab PO DAILY 11/13/23 11/13/23 History (formulary)] amLODIPine [Norvasc] 5 mg PO DAILY 11/13/23 11/13/23 History metFORMIN HCL 500 mg PO DAILY PRN 11/13/23 11/13/23 History Allergies Allergy/AdvReac Type Severity Reaction Status Date / Time Iodinated Contrast Media Allergy Anaphylaxis Verified 11/13/23 08:55 Physical Exam Vitals: Vital Signs Temp Pulse Pulse Resp BP BP Pulse Ox 11/13/23 11:14 98.1 F 86 18 191/90 99 11/13/23 10:15 91 18 166/89 98 11/13/23 09:07 85 17 157/80 100 11/13/23 08:45 98.3 F 84 16 153/84 97 11/13/23 06:32 98.7 F 88 16 179/73 98 Intake and Output 11/12/23 11/13/23 11/13/23 22:59 06:59 14:59 Output Total 600 Balance -600 Output: Urine 600 Other: Weight 65.317 kg 65.317 kg General appearance: Present: average body habitus, cooperative, no acute distress Eyes: Present: anicteric sclerae, EOMI, PERRLA, normal appearance ENT: Present: hearing grossly normal, normal oropharynx Neck; Absent: lymphadenopathy, rigidity, thyromegaly Carotids: negative: bruit present Thyroid: bilateral: normal size, negative: enlarged, nodule Respiratory: bilateral: CTA, negative: rales, rhonchi, wheezing Cardiovascular: regular: normal: S1, S2 Gastrointestinal: normal bowel sounds, soft. Absent: distended, organomegaly, tenderness Genitourinary Comment(s): deferred Neurologic: CNII-XII intact. Absent: focal deficits Results CBC & Chem 7: 11/13/23 07:55 11/13/23 07:55 Labs: Abnormal Lab Results - Last 24 Hours (Table) 11/13/23 11/13/23 11/13/23 Range/Units 07:55 07:55 07:55 Hgb 11.3 L (11.4-16.0) gm/dL MCHC 30.7 L (31.0-37.0) g/dL PT 9.9 L (10.0-12.5) sec Chloride 109 H (98-107) mmol/L BUN 19 H (7-17) mg/dL Glucose 156 H (74-99) mg/dL Ur Leukocyte Esterase (Negative) Urine WBC (0-5) /hpf 11/13/23 Range/Units 08:10 Hgb (11.4-16.0) gm/dL MCHC (31.0-37.0) g/dL PT (10.0-12.5) sec Chloride (98-107) mmol/L BUN (7-17) mg/dL Glucose (74-99) mg/dL Ur Leukocyte Esterase Moderate H (Negative) Urine WBC 12 H (0-5) /hpf Assessment and Plan Assessment: 1. Right hip fracture --Orthopedic surgery recommending total hip arthroplasty versus any sign depending of femoral head -- Planning for surgery likely tomorrow 2. Hypertension; fairly controlled on home dose of lisinopril 3. Diabetes mellitus type 2; will monitor Accu-Cheks before every meal and at bedtime with insulin sliding scale DVT prophylaxis; per discretion of primary team Patient is medically cleared for surgery
[2023-11-13 22:44] LABS: Glucose,Whole Blood 121 mg/dL (70-110)
[2023-11-14 08:10] LABS: Glucose,Whole Blood 116 mg/dL (70-110)
[2023-11-14] MEDS ORDERED: ROPIVACAINE 246.25 MG, EPINEPHrine 0.5 MG, KETOROLAC (30 mg/mL) 30 MG, cloNIDine HCL/PF... MISCELLANE ONE (08:15)
[2023-11-14] MEDS ORDERED: HYDROmorphone 0.5 MG/0.5 ML SYRINGE IVP PRN ×3 (08:15)
[2023-11-14] MEDS ORDERED: MAGNESIUM HYDROXIDE 2,400 MG/30 ML CUP PO PRN (08:15)
[2023-11-14] MEDS: IV FLUID CONTINUATION 1,000 ML IV ONE (08:15)
[2023-11-14] MEDS ORDERED: HYDROcodone/APAP 10-325MG 1 EACH TAB PO PRN (08:15)
[2023-11-14] MEDS ORDERED: traMADol 50 MG TAB PO PRN (08:15)
[2023-11-14] MEDS: ROPIVACAINE/EPI/CLONIDINE/KET 50 ML SYRINGE MISCELLANE PRN (09:23)
[2023-11-14] MEDS: VANCOMYCIN 1,000 MG VIAL MISCELLANE ONE ×2 (10:00→10:14)
[2023-11-14] MEDS: LACTATED RINGERS 1,000 ML IV ONE (10:14)
[2023-11-14 10:48] LABS: Glucose,Whole Blood 161 mg/dL (70-110)
--- NOTE | 2023-11-14 10:49 | XR ---
EXAMINATION TYPE: XR Hip Limited RT, FL guidance operating room DATE OF EXAM: 11/14/2023 Comparison: 11/13/2023 Clinical History: 73-year-old female Right hip fx Findings: 54 SEC FLUORO, 3.0560 GyCM2, 7 images submitted demonstrating placement of right hip total arthroplas ty. Impression: Intraoperative fluoroscopy as above.
[2023-11-14] MEDS: LACTATED RINGERS 1,000 ML IV SCH (10:55)
[2023-11-14] MEDS: HYDROmorphone 0.5 MG/0.5 ML SYRINGE IVP PRN (11:00)
--- NOTE | 2023-11-14 11:05 | P.OP ---
Date of Procedure: 11/14/23 Preoperative Diagnosis: 1. Right subcapital femoral neck fracture 2. Type 2 diabetes Postoperative Diagnosis: Same Procedure(s) Performed: Right direct anterior total hip arthroplasty Implants: 1. Xander Trident II Acetabular Cup, Size #46 2. Xander Accolade C Size #4 Femoral Stem, Standard Offset 3. Dual Mobility OD 36 mm, ID 22.2 mm, +0 neck Anesthesia: JOSEPH, regional Surgeon: Jose L Underwood Front Office Medical Assistant #1: Jh Liu Estimated Blood Loss (ml): 200 IV fluids (ml): 800 Pathology: none sent Condition: stable Disposition: PACU Indications for Procedure: The patient is a very pleasant relatively healthy and active 73-year-old female with a medical history significant only for well-controlled type 2 diabetes who sustained a ground-level fall 2 days ago. She states that she was unable to ambulate but felt better. Her son who is a radiologist at this facility recommended that the patient presented to the emergency room for x-rays. X-rays showed an impacted right subcapital femoral neck fracture. The patient was admitted under my care. I met with the patient and discussed treatment with both her and her sons. Her x-rays and computed tomography scan showed an impacted femoral neck fracture with poor bone quality. We discussed several treatment options including nonsurgical with strict nonweightbearing and serial x-rays, in situ cannulated screw fixation, and a direct anterior total hip arthroplasty. We discussed the pros and cons of each procedure. After our discussion the family elected to proceed with a total hip replacement. I had a long discussion with the patient and her family about a total hip replacement through a direct anterior approach. Risks discussed include, but are certainly not limited to, risks from anesthesia, superficial infection requiring local wound care or antibiotics, deep bertram-prosthetic joint infection and the treatment required to eradicate infection, intraoperative fracture, postoperative periprosthetic fracture, damage to local blood vessels or nerves particularly the lateral femoral cutaneous nerve, delayed wound healing requiring local wound care or possibly surgical debridement, hip dislocation, leg length discrepancy, soft tissue irritation around the total hip implant such as iliopsoas tendinitis or trochanteric bursitis, wear and osteolysis from the implants, squeaking or audible noises, groin pain, thigh pain, heterotopic ossification, stiffness, aseptic loosening of the implants, dissatisfaction with surgical outcome, need for revision surgery, DVT, PE, swelling of the operative extremity, acute coronary event, stroke, failure to thrive, and possibly loss of life or limb. The patient understands that while these are the most common complications after an elective hip replacement there are certainly other less common complications possible. They were given ample time to ask questions regarding the potential complications of a hip replacement. Following our discussion the patient provided their verbal and written consent to go forward with an elective total hip replacement. Operative Findings: Immediately upon entering the hip capsule there was a large hemarthrosis co nsistent with an acute femoral neck fracture. A subcapital femoral neck fracture was identified with extension into the head. There was comminution along the lateral neck into the saddle area of the hip. The patient was also found to have relatively poor bone quality. There were peripheral osteophytes around the acetabulum and partial-thickness cartilage loss of both the femoral head and acetabular cartilage. Description of Procedure: The patient was identified in the preoperative holding area and the correct hip was marked with my initials. I reviewed the procedure and consent with the patient. All of their questions were answered. The patient was then brought back into the operating room by anesthesia. While on the [facility] anesthesia was administered by the anesthesia team. Preoperative antibiotics and tranexamic acid were also given. After the patient was under anesthesia I examined their ankles to determine their preoperative leg length discrepancy. The skin over the anterior aspect of the hip was shaved to remove hair over the site of planned incision. Both feet and ankles were padded with webril and boots for the [place] were applied. The patient was then carefully transferred onto the [place] table. A perineal post was immediately placed. The arms were placed on arm holders and were well-padded. Both boots were secured to the spars on the [place] table. The patient was positioned so that the pelvis was centered over the post. Nonsterile drapes were applied. A timeout was performed identifying the correct patient, operative extremity, and procedure. At this point fluoroscopy was brought in to take preoperative images of the pelvis and operative hip. A metallic bar was used to create a bi-ischial line for use as a reference to leg length adjustments during the procedure. Global offset was also measured on both the operative and nonoperative leg. Fluoroscopy was then brought out and a pre-scrub using a chlorhexidine scrub brush was performed. The operative limb was then prepped and draped in the standard sterile fashion. An anterior longitudinal incision was made lateral and distal to the ASIS. The skin and subcutaneous tissues were incised sharply. The underlying tensor fascia was identified and incised in its midportion. The fascia was dissected free from the underlying muscle and the muscle belly was retracted. A blunt tipped cobra retractor was placed over the superior neck under the muscle fibers of the gluteus minimus. The deep enveloping fascia of the tensor was incised. The anterior leash of vessels were then identified and cauterized. The fascia between the rectus and the capsule was then incised and the pre-capsular fat was excised. A second Cobra was placed inferior to the neck. The interval between the rectus and iliocapsularis and the hip capsule was developed and a retractor was placed carefully over the anterior rim of the acetabulum. A T-shaped anterior capsulotomy was performed. There was a large hemarthrosis. The superior capsular leaflet was left in place in the inferior capsular flap was excised. The Cobra retractors were placed intracapsularly. There was an obvious fracture in the subcapital region with extension into the head and comminution of the lateral neck. We then made a femoral neck osteotomy according to preoperative and intraoperative templating and confirmed the level of the osteotomy using fluoroscopic imaging. The femoral head was removed, passed off to the back table, and sized. The superior capsular flap was excised. Retractors were placed circumferentially exposing the acetabulum. We then circumferentially debrided the acetabulum free of labrum and osteophytes. The pulvinar was removed to fully visualize the cotyloid fossa. We then sequentially reamed to achieve peripheral fit and excellent bleeding subchondral bone. The socket was thoroughly irrigated. The acetabular component was impacted into the appropriate position using fluoroscopy to guide version, inclination, and depth of insertion taking care to have a comparable image of the AP pelvis to the standing image taken in the office. An excellent press-fit was achieved and final position was confirmed using fluoroscopy. The press fit was augmented with bony cancellus dome screws. The liner was then impacted into the socket. Attention was then turned to the femur. The remnant dorsal lateral capsule was excised. The short external rotators were visible and protected. A bone hook was used to confirm appropriate translation of the trochanter away from the manjinder tabulum. The leg was then extended and adducted and the bone hook was used to elevate the femur for broaching. On inspection of the patient's proximal femur, they appeared to have poor bone quality so I elected to proceed with cemented fixation of the femoral component. A box osteotome and blunt tipped canal sound was then utilized to gain access to the femoral canal. We then sequentially broached the femur in appropriate anteversion until torsional stability was achieved and the implant was felt to have reached the appropriate size to allow trialing. The neck cut was brought flush to the trial broach with a calcar planar. A trial neck and head were then placed onto the broach and the hip was atraumatically reduced under direct visualization. External rotation to 90 was performed to assess stability. Fluoroscopy was brought in. An AP and lateral fluoroscopic image of the proximal femur was obtained to assess position and fill of the trial broach. An AP of the pelvis was then obtained and matched to the preoperative image taken. A bi-ischial bar was then placed and measurements were taken to assess changes in length and offset. The hip was then carefully dislocated, the proximal femur was exposed, and the trial implants were removed. The proximal femur was then prepared for cementing. The canal was thoroughly irrigated with pulsatile lavage to remove blood and marrow contents. A cement restrictor was placed to a depth just distal to the tip of the final implant. Epinephrine-soaked gauze was then packed into the proximal femur. 2 bags of cement were then mixed using a centrifuge and placed into a cement gun. Anesthesia was notified that cementing was about to commence to make sure the patient was appropriately ventilated and hydrated. Once the cement had reached appropriate consistency, the cement gun was used to fill the canal in a retrograde fashion starting at the restrictor. Cement was then pressurized into the canal with a blue tipped diagrammer and seamer. The stem was then carefully introduced into the cement taking care to guide the implant into appropriate version. The stem was held in position until the cement had fully set. All extra cement was removed while the cement was hardening. The trunnion was cleansed and the final head was tapped into place to engage the Leon taper. The acetabulum was irrigated and visualized to be free of debris. The hip was carefully reduced. Stability was checked clinically with external rotation to 90 and there was no evidence of instability. Final fluoroscopic images were taken. The wound was then thoroughly irrigated and soaked with a dilute Betadine rinse for 3 minutes. 3 L of sterile saline was irrigated through the wound using pulsatile lavage. Local anesthetic cocktail was injected into the soft tissues around the surgical field. The wound was then closed in layers. A sterile dressing was placed over the surgical incision. The drapes were taken down and the patient was carefully transferred off of the [place] table. Following removal of the boots the leg lengths felt acceptable. The patient was then taken to recovery room having tolerated the procedure well. Jh Liu PA-C was required as a skilled infertility medical assistant due to the complexity of surgery for patient positioning, draping, exposure, retraction, closure of wound, and application of dressing. PLAN: The patient can weight-bear as tolerated on the operative extremity. 2 doses of postoperative antibiotics. DVT prophylaxis with aspirin 81 mg twice a day based on preoperative risk stratification. Physical therapy for gait training.
[2023-11-14] MEDS: ASPIRIN 81 MG PO SCH (11:15)
[2023-11-14] MEDS: FAMOTIDINE 20 MG TAB PO SCH (11:15)
[2023-11-14 11:58] LABS: Glucose,Whole Blood 197 mg/dL (70-110)
[2023-11-14 13:12] LABS: African American GFR (CKD) >90 (>60 ml/min/1.73 sqM); Anion Gap 10 mmol/L; Blood Urea Nitrogen 23 mg/dL (7-17); Calcium 8.4 mg/dL (8.4-10.2); Carbon Dioxide 21 mmol/L (22-30); Chloride 109 mmol/L (98-107); Glucose 182 mg/dL (74-99); Non-African American GFR(CKD) 79 (>60 ml/min/1.73 sqM); Potassium 4.7 mmol/L (3.5-5.1); Sodium 140 mmol/L (137-145)
[2023-11-14 13:21] LABS: Basophils % (A) 0 %; Eosinophils % (A) 0 %; HCT 36.7 % (34.0-46.0); HGB 11.1 gm/dL (11.4-16.0); Hypochromasia Marked; Lymphocytes # (A) 1.1 k/uL (1.0-4.8); Lymphocytes % (A) 8 %; MCH 27.5 pg (25.0-35.0); MCHC 30.2 g/dL (31.0-37.0); Mean Platelet Volume 8.1; Monocytes # (A) 0.2 k/uL (0-1.0); Monocytes % (A) 1 %; Neutrophils # (A) 12.6 k/uL (1.3-7.7); Neutrophils % (A) 90 %; Platelet Count 265 k/uL (150-450); RBC 4.03 m/uL (3.80-5.40); RDW 14.8 % (11.5-15.5)
[2023-11-14] MEDS: ACETAMINOPHEN TAB 325 MG TAB PO PRN (15:47)
[2023-11-14] MEDS: MULTIVITAMINS, THERA 1 EACH TAB PO SCH (16:29)
[2023-11-14 16:38] LABS: Glucose,Whole Blood 206 mg/dL (70-110)
[2023-11-14] MEDS: metFORMIN 500 MG TAB PO PRN (16:45)
--- NOTE | 2023-11-14 18:12 | P.PN ---
Subjective Progress Note Date: 11/14/23 73-year-old female, history of diabetes mellitus type 2, hypertension, presents emergency department with chief complaint of fall. Patient had a mechanical trip and fall yesterday she fell onto her right hip patient states she has severe pain with weightbearing and certain movements. Patient denies any prior hip surgeries she states she has minimal pain at rest she states it feels like it is in her right groin, pelvis region. --Patient reports no history of chest pain or shortness of breath; reports he is fairly active taking care of grandchildren --Regularly follows up with PCP; has never had any cardiac issues Blood work completed in ED reveals a WBC of 9.5, hemoglobin of 11.3 and platelet count of 279, sodium 142, potassium 4.3, BUNs/creatinine of 19/0.74, blood glucose of 156, UA is unremarkable EKG reveals sinus rhythm with first-degree AV block Right hip x-ray, pelvis x-ray showing impacted subcapital fracture CT hip reveals impacted mildly displaced subcapital fracture right femur Objective - Vital Signs Vital signs: Vital Signs Temp 97.6 F 11/14/23 11:34 Pulse 71 11/14/23 11:34 Resp 17 11/14/23 11:34 BP 127/68 11/14/23 11:34 Pulse Ox 95 11/14/23 11:34 FiO2 Intake & Output 11/13/23 11/14/23 11/14/23 18:59 06:59 18:59 Intake Total 1000 Output Total 600 600 200 Balance -600 -600 800 Weight 65.317 kg Intake: IV 1000 Output: Urine 600 600 Estimated Blood Loss 200 Other: Voiding Method External Catheter - Exam General appearance: Present: average body habitus, cooperative, no acute dis tress Eyes: Present: anicteric sclerae, EOMI, PERRLA, normal appearance ENT: Present: hearing grossly normal, normal oropharynx Neck; Absent: lymphadenopathy, rigidity, thyromegaly Carotids: negative: bruit present Thyroid: bilateral: normal size, negative: enlarged, nodule Respiratory: bilateral: CTA, negative: rales, rhonchi, wheezing Cardiovascular: regular: normal: S1, S2 Gastrointestinal: normal bowel sounds, soft. Absent: distended, organomegaly, tenderness Genitourinary Comment(s): deferred Neurologic: CNII-XII intact. Absent: focal deficits - Labs CBC & Chem 7: 11/14/23 12:22 11/14/23 12:22 Labs: Abnormal Lab Results - Last 24 Hours (Table) 11/13/23 11/13/23 11/14/23 Range/Units 16:33 22:42 08:09 POC Glucose (mg/dL) 183 H 121 H 116 H (70-110) mg/dL 11/14/23 Range/Units 10:47 POC Glucose (mg/dL) 161 H (70-110) mg/dL Assessment and Plan Assessment: 1. Right hip fracture --Orthopedic surgery recommending total hip arthroplasty versus any sign depending of femoral head -- Planning for surgery likely tomorrow 2. Hypertension; fairly controlled on home dose of lisinopril 3. Diabetes mellitus type 2; will monitor Accu-Cheks before every meal and at bedtime with insulin sliding scale DVT prophylaxis; per discretion of primary team Patient is medically cleared for surgery
[2023-11-14] MEDS: SENNOSIDES-DOCUSATE SODIUM 1 EACH TAB PO SCH (21:38)
[2023-11-15 06:25] LABS: Glucose,Whole Blood 121 mg/dL (70-110)
--- NOTE | 2023-11-15 08:30 | P.PN ---
Subjective Patient is doing well this morning. She has minimal discomfort in her right hip. She states that she has been up and ambulated with assistance and a walker in the preoperative pain she had been ambulating is gone. She denies chest pain or shortness of breath. She is otherwise doing well. Objective - Vital Signs Vital signs: Vital Signs Temp 98.4 F 11/15/23 02:00 Pulse 83 11/15/23 02:00 Resp 16 11/15/23 02:00 BP 154/70 11/15/23 02:00 Pulse Ox 97 11/15/23 02:00 FiO2 Intake & Output 11/14/23 11/15/23 11/15/23 18:59 06:59 18:59 Intake Total 1000 Output Total 200 Balance 800 Intake: IV 1000 Output: Estimated Blood Loss 200 Other: Voiding Method External Catheter Toilet # Voids 3 - Exam The patient is resting comfortably in bed. She is alert and able to answer questions. She is in no apparent distress. A focused exam of the right lower extremity was conducted. On inspection there is no intact dressing over the anterior aspect of the right hip with no drainage or strike through. There is mild swelling throughout the thigh but it is soft and compressible. Femoral nerve function is intact. The patient is able to actively plantarflex and dorsiflex her ankle and her toes. - Labs CBC & Chem 7: 11/14/23 12:22 11/14/23 12:22 Labs: Abnormal Lab Results - Last 24 Hours (Table) 11/14/23 11/14/23 11/14/23 Range/Units 10:47 11:57 12:22 WBC 14.0 H (3.8-10.6) k/uL Hgb 11.1 L (11.4-16.0) gm/dL MCHC 30.2 L (31.0-37.0) g/dL Neutrophils # 12.6 H (1.3-7.7) k/uL Chloride (98-107) mmol/L Carbon Dioxide (22-30) mmol/L BUN (7-17) mg/dL Glucose (74-99) mg/dL POC Glucose (mg/dL) 161 H 197 H (70-110) mg/dL 11/14/23 11/14/23 11/15/23 Range/Units 12:22 16:37 06:23 WBC (3.8-10.6) k/uL Hgb (11.4-16.0) gm/dL MCHC (31.0-37.0) g/dL Neutrophils # (1.3-7.7) k/uL Chloride 109 H (98-107) mmol/L Carbon Dioxide 21 L (22-30) mmol/L BUN 23 H (7-17) mg/dL Glucose 182 H (74-99) mg/dL POC Glucose (mg/dL) 206 H 121 H (70-110) mg/dL Assessment and Plan Assessment: Postoperative day #1 status post right direct anterior total hip replacement for impacted subcapital femoral neck fracture Type 2 diabetes Osteopenia with fragility fracture Plan: 1. Weight bear as tolerated right lower extremity, up with assistance and a walker 2. 2 doses of postoperative antibiotics followed by 2 weeks of doxycycline 3. DVT prophylaxis with aspirin 81 mg twice a day 4 weeks 4. Leave surgical dressing in place until 2 week postoperative appointment 5. Appreciate internal medicine's assistance with perioperative medical management 6. Physical therapy for gait training 7. Dispo: I would like to keep the patient until tomorrow so she can have a formal treatment session and gait training with physical therapy. If she is doing well she will likely be able to discharge home under the care of her family with home health services.
[2023-11-15 09:04] VITALS: RESP 18
[2023-11-15] MEDS: DOXYCYCLINE 100 MG CAP PO SCH (10:55)
[2023-11-15 11:09] LABS: Basophils # (A) 0.02 X 10*3/uL (0.00-0.10); Basophils % (A) 0.2 %; Eosinophils # (A) 0.03 X 10*3/uL (0.04-0.35); Eosinophils % (A) 0.3 %; HCT 28.5 % (37.2-46.3); HGB 8.6 g/dL (12.0-15.0); Lymphocytes # (A) 2.38 X 10*3/uL (0.90-5.00); Lymphocytes % (A) 22.3 %; MCH 26.8 pg (27.0-32.0); MCHC 30.2 g/dL (32.0-37.0); MCV 88.8 FL (80.0-97.0); Mean Platelet Volume 10.6 FL (9.5-12.2); Monocytes # (A) 0.79 X 10*3/uL (0.20-1.00); Monocytes % (A) 7.4 %; NRBC Per 100 WBC 0 X 10*3/uL (0.00-0.01); Neutrophils # (A) 7.43 X 10*3/uL (1.80-7.70); Neutrophils % (A) 69.4 %; Platelet Count 264 X 10*3/uL (140-440); RBC 3.21 X 10*6/uL (4.10-5.20); RDW 15.3 % (11.5-14.5); WBC 10.69 X 10*3/uL (4.50-10.00)
[2023-11-15 11:17] LABS: Glucose,Whole Blood 157 mg/dL (70-110)
[2023-11-15 11:30] LABS: BUN/Creat Ratio 33.71 Ratio (12.00-20.00); Blood Urea Nitrogen 23.6 mg/dL (9.0-27.0); Calcium 8.6 mg/dL (8.7-10.3); Carbon Dioxide 22.1 mmol/L (21.6-31.8); Chloride 107 mmol/L (96-109); Glucose 131 mg/dL (70-110); Potassium 4.3 mmol/L (3.5-5.5); Sodium 139 mmol/L (135-145)
[2023-11-15 16:21] LABS: Glucose,Whole Blood 147 mg/dL (70-110)
[2023-11-15] MEDS: HYDROcodone/APAP 5-325MG 1 EACH TAB PO PRN (16:29)
[2023-11-15] MEDS ORDERED: HYDROmorphone 0.5 MG/0.5 ML SYRINGE IVP PRN (18:09)
[2023-11-15] MEDS ORDERED: LIDOCAINE 1% (10MG/ML) FOR IV START INTRADERMA PRN (18:09)
[2023-11-15] MEDS ORDERED: ONDANSETRON 4 MG/2 ML VIAL IVP PRN (18:09)
[2023-11-15] MEDS: DEXAMETHASONE SOD PHOSPHATE 4 MG/ML 1 ML VIAL IV ONE (18:49)
[2023-11-15] MEDS: LACTATED RINGERS 1,000 ML IV SCH (18:50)
[2023-11-15] MEDS: ONDANSETRON 4 MG/2 ML VIAL IVP ONE (18:50)
--- NOTE | 2023-11-15 19:38 | P.PN ---
Subjective Progress Note Date: 11/15/23 73-year-old female, history of diabetes mellitus type 2, hypertension, presents emergency department with chief complaint of fall. Patient had a mechanical trip and fall yesterday she fell onto her right hip patient states she has severe pain with weightbearing and certain movements. Patient denies any prior hip surgeries she states she has minimal pain at rest she states it feels like it is in her right groin, pelvis region. --Patient reports no history of chest pain or shortness of breath; reports he is fairly active taking care of grandchildren --Regularly follows up with PCP; has never had any cardiac issues Blood work completed in ED reveals a WBC of 9.5, hemoglobin of 11.3 and platelet count of 279, sodium 142, potassium 4.3, BUNs/creatinine of 19/0.74, blood glucose of 156, UA is unremarkable EKG reveals sinus rhythm with first-degree AV block Right hip x-ray, pelvis x-ray showing impacted subcapital fracture CT hip reveals impacted mildly displaced subcapital fracture right femur 11/15/2023 Patient is seen and evaluated with son at bedside; using Tylenol for hip pain; was able to ambulate earlier in the day with walker; patient is status post right direct anterior total hip replacement for impacted subcapital femoral neck fracture; POD #1 Vital signs are reviewed and stable with temperature of 98.4, pulse 83, respirations 16 and blood pressure 150/70 -- Patient to continue to weight-bear as tolerated on right lower extremity; continue DVT prophylaxis with aspirin 81 mg twice daily for 4 weeks -- Patient will have a complete treatment session with physical therapy for gait training and further direction about discharge Objective - Vital Signs Vital signs: Vital Signs Temp 98.1 F 11/15/23 08:00 Pulse 78 11/15/23 08:00 Resp 18 11/15/23 08:00 BP 138/73 11/15/23 08:00 Pulse Ox 97 11/15/23 08:00 FiO2 Intake & Output 11/14/23 11/15/23 11/15/23 18:59 06:59 18:59 Intake Total 1000 Output Total 200 Balance 800 Intake: IV 1000 Output: Estimated Blood Loss 200 Other: Voiding Method External Catheter Toilet Toilet # Voids 3 - Exam General appearance: Present: average body habitus, cooperative, no acute distress Eyes: Present: anicteric sclerae, EOMI, PERRLA, normal appearance ENT: Present: hearing grossly normal, normal oropharynx Neck; Absent: lymphadenopathy, rigidity, thyromegaly Carotids: negative: bruit present Thyroid: bilateral: normal size, negative: enlarged, nodule Respiratory: bilateral: CTA, negative: rales, rhonchi, wheezing Cardiovascular: regular: normal: S1, S2 Gastrointestinal: normal bowel sounds, soft. Absent: distended, organomegaly, tenderness Genitourinary Comment(s): deferred Neurologic: CNII-XII intact. Absent: focal deficits - Labs CBC & Chem 7: 11/15/23 06:11 11/15/23 06:11 Labs: Abnormal Lab Results - Last 24 Hours (Table) 11/14/23 11/15/23 11/15/23 Range/Units 16:37 06:11 06:11 WBC 10.69 H (4.50-10.00) X 10*3/uL RBC 3.21 L (4.10-5.20) X 10*6/uL Hgb 8.6 L (12.0-15.0) g/dL Hct 28.5 L (37.2-46.3) % MCH 26.8 L (27.0-32.0) pg MCHC 30.2 L (32.0-37.0) g/dL RDW 15.3 H (11.5-14.5) % Eosinophils # 0.03 L (0.04-0.35) X 10*3/uL BUN/Creatinine Ratio 33.71 H (12.00-20.00) Ratio Glucose 131 H (70-110) mg/dL POC Glucose (mg/dL) 206 H (70-110) mg/dL Calcium 8.6 L (8.7-10.3) mg/dL 11/15/23 11/15/23 Range/Units 06:23 11:15 WBC (4.50-10.00) X 10*3/uL RBC (4.10-5.20) X 10*6/uL Hgb (12.0-15.0) g/dL Hct (37.2-46.3) % MCH (27.0-32.0) pg MCHC (32.0-37.0) g/dL RDW (11.5-14.5) % Eosinophils # (0.04-0.35) X 10*3/uL BUN/Creatinine Ratio (12.00-20.00) Ratio Glucose (70-110) mg/dL POC Glucose (mg/dL) 121 H 157 H (70-110) mg/dL Calcium (8.7-10.3) mg/dL Assessment and Plan Assessment: 1. Right hip fracture --Orthopedic surgery recommending total hip arthroplasty versus any sign depending of femoral head -- Planning for surgery likely tomorrow 2. Hypertension; fairly controlled on home dose of lisinopril 3. Diabetes mellitus type 2; will monitor Accu-Cheks before every meal and at bedtime with insulin sliding scale DVT prophylaxis; per discretion of primary team Patient is medically cleared for surgery
[2023-11-15 22:01] LABS: Glucose,Whole Blood 129 mg/dL (70-110)
[2023-11-16 06:17] LABS: Glucose,Whole Blood 120 mg/dL (70-110)
--- NOTE | 2023-11-16 08:56 | P.PN ---
Subjective Patient feeling lightheaded this morning. Denies CP/SOB. She also has slightly increased pain in her right hip and has started taking [employer]. Objective - Vital Signs Vital signs: Vital Signs Temp 98.1 F 11/16/23 07:17 Pulse 77 11/16/23 07:17 Resp 18 11/16/23 07:17 BP 107/56 11/16/23 07:17 Pulse Ox 96 11/16/23 07:17 FiO2 Intake & Output 11/15/23 11/16/23 11/16/23 18:59 06:59 18:59 Other: Voiding Method Toilet Toilet Toilet # Voids 1 2 - Exam The patient is sitting up in a chair. She is alert and can answer questions. The dressing over her hip is intact with no drainage or strike-through. There is mild swelling in the thigh. Femoral nerve function is intact. She can actively move her ankle and foot up and down. - Labs CBC & Chem 7: 11/15/23 06:11 11/15/23 06:11 Labs: Abnormal Lab Results - Last 24 Hours (Table) 11/15/23 11/15/23 11/15/23 Range/Units 06:11 06:11 06:11 WBC 10.69 H (4.50-10.00) X 10*3/uL RBC 3.21 L (4.10-5.20) X 10*6/uL Hgb 8.6 L (12.0-15.0) g/dL Hct 28.5 L (37.2-46.3) % MCH 26.8 L (27.0-32.0) pg MCHC 30.2 L (32.0-37.0) g/dL RDW 15.3 H (11.5-14.5) % Eosinophils # 0.03 L (0.04-0.35) X 10*3/uL BUN/Creatinine Ratio 33.71 H (12.00-20.00) Ratio Glucose 131 H (70-110) mg/dL POC Glucose (mg/dL) (70-110) mg/dL Calcium 8.6 L (8.7-10.3) mg/dL Vitamin D 25-Hydroxy 29.8 L (30.0-100.0) ng/mL 11/15/23 11/15/23 11/15/23 Range/Units 11:15 16:18 21:58 WBC (4.50-10.00) X 10*3/uL RBC (4.10-5.20) X 10*6/uL Hgb (12.0-15.0) g/dL Hct (37.2-46.3) % MCH (27.0-32.0) pg MCHC (32.0-37.0) g/dL RDW (11.5-14.5) % Eosinophils # (0.04-0.35) X 10*3/uL BUN/Creatinine Ratio (12.00-20.00) Ratio Glucose (70-110) mg/dL POC Glucose (mg/dL) 157 H 147 H 129 H (70-110) mg/dL Calcium (8.7-10.3) mg/dL Vitamin D 25-Hydroxy (30.0-100.0) ng/mL 11/16/23 Range/Units 06:11 WBC (4.50-10.00) X 10*3/uL RBC (4.10-5.20) X 10*6/uL Hgb (12.0-15.0) g/dL Hct (37.2-46.3) % MCH (27.0-32.0) pg MCHC (32.0-37.0) g/dL RDW (11.5-14.5) % Eosinophils # (0.04-0.35) X 10*3/uL BUN/Creatinine Ratio (12.00-20.00) Ratio Glucose (70-110) mg/dL POC Glucose (mg/dL) 120 H (70-110) mg/dL Calcium (8.7-10.3) mg/dL Vitamin D 25-Hydroxy (30.0-100.0) ng/mL Assessment and Plan Assessment: POD#2 s/p Right DA BARBARA for femoral neck fracture Plan: Continue treatment as outlined. Follow AM labs. Will see how she does with PT. If she does well, her pain is controlled and she is cleared by IM, she may be able to d/c home today. If she needs to stay an additional night, we will keep her until tomorrow.
[2023-11-16 09:13] LABS: Blood Urea Nitrogen 14.4 mg/dL (9.0-27.0); Calcium 8.5 mg/dL (8.7-10.3); Carbon Dioxide 23.3 mmol/L (21.6-31.8); Chloride 107 mmol/L (96-109); Glucose 117 mg/dL (70-110); Potassium 4.6 mmol/L (3.5-5.5); Sodium 140 mmol/L (135-145)
[2023-11-16 11:41] LABS: Glucose,Whole Blood 151 mg/dL (70-110)
--- NOTE | 2023-11-16 12:34 | P.DS ---
Providers Date of admission: 11/13/23 08:19 Attending physician: Jose L Underwood Consults: 11/13/23 07:41 Consult Physician Urgent Consulting Provider: Jennifer Valencia Consult Reason/Comments: Surgical clearance Do you want consulting provider notified?: Yes Primary care physician: Sarah Her [facility] Course: the patient is a very pleasant 72-year-old female with a medical history significant for well-controlled diabetes who sustained a ground-level fall this past . She presented to the emergency department the following Thursday and was admitted under my care. After discussion with myself and her family the decision was made to proceed with a total hip replacement. She had an uncomplicated total hip replacement on Thursday. She did well postoperatively. She was transitioned from IV to oral pain medications. She received 2 doses of postoperative antibiotics. Internal medicine was consulted and assisted with preoperative medical management. She was ultimately cleared for discharge home under the care of her family today. Patient Condition at Discharge: Stable Plan - Discharge Summary New Discharge Prescriptions: New HYDROcodone/APAP 5-325MG [Treichlers 5-325] 1 - 2 tab PO Q6HR PRN #32 tab PRN Reason: Pain Docusate [Colace] 100 mg PO BID #30 capsule Doxycycline Monohydrate [Monodox] 100 mg PO BID #28 cap Celecoxib [CeleBREX] 200 mg PO BID #60 cap Aspirin 81 mg PO BID #60 tab Omeprazole 40 mg PO DAILY #30 cap No Action lisinopriL [Zestril] 10 mg PO BID metFORMIN HCL 500 mg PO DAILY PRN PRN Reason: large meal Multivitamins, Thera [Multivitamin (formulary)] 1 tab PO DAILY Aspirin EC [Ecotrin Low Dose] 81 mg PO DAILY amLODIPine [Norvasc] 5 mg PO DAILY Discharge Medication List lisinopriL [Zestril] 10 mg PO BID 09/12/20 [History] Aspirin EC [Ecotrin Low Dose] 81 mg PO DAILY 11/13/23 [History] Multivitamins, Thera [Multivitamin (formulary)] 1 tab PO DAILY 11/13/23 [History] amLODIPine [Norvasc] 5 mg PO DAILY 11/13/23 [History] metFORMIN HCL 500 mg PO DAILY PRN 11/13/23 [History] Aspirin 81 mg PO BID #60 tab 11/15/23 [Rx] Celecoxib [CeleBREX] 200 mg PO BID #60 cap 11/15/23 [Rx] Docusate [Colace] 100 mg PO BID #30 capsule 11/15/23 [Rx] Doxycycline Monohydrate [Monodox] 100 mg PO BID #28 cap 11/15/23 [Rx] HYDROcodone/APAP 5-325MG [Treichlers 5-325] 1 - 2 tab PO Q6HR PRN #32 tab 11/15/23 [Rx] Omeprazole 40 mg PO DAILY #30 cap 11/15/23 [Rx] Follow up Appointment(s)/Referral(s): [facility], [NON-STAFF] - As Needed [facility] [NON-STAFF] - As Needed (walker) Sarah Her MD [Primary Care Provider] - 11/19/23 10:30 am Jose L Underwood MD [Medical Doctor] - 12/01/23 2:30 pm Activity/Diet/Wound Care/Special Instructions: 1. Weight-bear as tolerated on your operative extremity unless instructed otherwise. Use a walker or other assistive device to ambulate. 2. Leave surgical dressing in place. If your dressing becomes saturated with blood, there is drainage, or the dressing becomes loose please contact the office. 3. It is okay to shower with your surgical dressing, but do not submerge in water (no hot tubs, bath's, swimming etc.) 4. Make sure to take her blood clot prevention medication as prescribed (aspirin, Eliquis, Xarelto, and Plavix are commonly prescribed medications for blood clot prevention) 5. While taking Treichlers or Percocet for pain make sure you're taking a stool softener (Colace) and drink lots of water. 6. Keep all follow-up appointments as scheduled. You will usually be seen in 1-2 weeks following surgery. 7. Please contact the office with any questions or concerns [phone] Discharge Disposition: HOME WITH HOME HEALTH SERVICES
--- NOTE | 2023-11-16 13:26 | P.PN ---
Subjective 73-year-old female, history of diabetes mellitus type 2, hypertension, presents emergency department with chief complaint of fall. Patient had a mechanical trip and fall yesterday she fell onto her right hip patient states she has severe pain with weightbearing and certain movements. Patient denies any prior hip surgeries she states she has minimal pain at rest she states it feels like it is in her right groin, pelvis region. --Patient reports no history of chest pain or shortness of breath; reports he is fairly active taking care of grandchildren --Regularly follows up with PCP; has never had any cardiac issues Blood work completed in ED reveals a WBC of 9.5, hemoglobin of 11.3 and platelet count of 279, sodium 142, potassium 4.3, BUNs/creatinine of 19/0.74, blood glucose of 156, UA is unremarkable EKG reveals sinus rhythm with first-degree AV block Right hip x-ray, pelvis x-ray showing impacted subcapital fracture CT hip reveals impacted mildly displaced subcapital fracture right femur 11/15/2023 Patient is seen and evaluated with son at bedside; using Tylenol for hip pain; was able to ambulate earlier in the day with walker; patient is status post right direct anterior total hip replacement for impacted subcapital femoral neck fracture; POD #1 Vital signs are reviewed and stable with temperature of 98.4, pulse 83, respira tions 16 and blood pressure 150/70 -- Patient to continue to weight-bear as tolerated on right lower extremity; continue DVT prophylaxis with aspirin 81 mg twice daily for 4 weeks -- Patient will have a complete treatment session with physical therapy for gait training and further direction about discharge Patient is status post right total hip arthroplasty on 11/13. Today's postop day #2. Patient sitting in chair. Denies specific symptoms. No headache dizziness weakness or numbness. No urinary complaint. No abdominal pain and she had bowel movement. No vomiting. Patient blood pressure slightly on the low normal side, she is on lisinopril 10 mg twice daily. But we recommend to hold her Norvasc 5 mg upon discharge and follow-up with PCP Patient has an appointment with Dr. Smith about on 11/18 and she agrees. Objective - Vital Signs Vital signs: Vital Signs Temp 98.1 F 11/16/23 07:17 Pulse 77 11/16/23 07:17 Resp 18 11/16/23 07:17 BP 107/56 11/16/23 07:17 Pulse Ox 96 11/16/23 07:17 FiO2 Intake & Output 11/15/23 11/16/23 11/16/23 18:59 06:59 18:59 Other: Voiding Method Toilet Toilet Toilet # Voids 1 2 - Exam GENERAL: The patient is alert and oriented x3, not in any acute distress. Well developed, well nourished. HEENT: Pupils are round and equally reacting to light. EOMI. No scleral icterus. No conjunctival pallor. Normocephalic, atraumatic. No pharyngeal erythema. No thyromegaly. CARDIOVASCULAR: S1 and S2 present. No murmurs, rubs, or gallops. PULMONARY: Chest is clear to auscultation, no wheezing , no crackles. ABDOMEN: Soft, nontender, nondistended, normoactive bowel sounds. No palpable organomegaly. MUSCULOSKELETAL: No joint swelling or deformity. -EXTREMITIES: No cyanosis, clubbing, or pedal edema. Surgical wound with dressing in place, rest of exam is deferred to surgery team NEUROLOGICAL: Gross neurological examination did not reveal any focal deficits. SKIN: No rashes. no petechiae. - Labs CBC & Chem 7: 11/15/23 06:11 11/16/23 04:13 Labs: Abnormal Lab Results - Last 24 Hours (Table) 11/15/23 11/15/23 11/15/23 Range/Units 06:11 16:18 21:58 BUN/Creatinine Ratio (12.00-20.00) Ratio Glucose (70-110) mg/dL POC Glucose (mg/dL) 147 H 129 H (70-110) mg/dL Calcium (8.7-10.3) mg/dL Vitamin D 25-Hydroxy 29.8 L (30.0-100.0) ng/mL 11/16/23 11/16/23 11/16/23 Range/Units 04:13 06:11 11:40 BUN/Creatinine Ratio 24.00 H (12.00-20.00) Ratio Glucose 117 H (70-110) mg/dL POC Glucose (mg/dL) 120 H 151 H (70-110) mg/dL Calcium 8.5 L (8.7-10.3) mg/dL Vitamin D 25-Hydroxy (30.0-100.0) ng/mL Assessment and Plan Assessment: 1. Right hip fracture --Orthopedic surgery: s/p total hip arthroplasty versus any sign depending of femoral head -- Planning for surgery likely tomorrow 2. Hypertension; fairly controlled on home dose of lisinopril, hold norvasc upon discharge and f/u with pcp on 11/18 3. Diabetes mellitus type 2; will monitor Accu-Cheks before every meal and at bedtime with insulin sliding scale we recommend pt f/u with pcp and she has appointment on 11/18 she agrees dvt px per orthopedic team , currently she is placed on aspirin bid ( at home she was on asprin once daily) pt is medically stable
[2023-11-16 14:17] VITALS: BP 111/66; PULSE 90; TEMP 99.7
[2023-11-16 16:23] LABS: Glucose,Whole Blood 118 mg/dL (70-110)
== END 2023-11-16 19:00 | disposition home health service (06) | DRG 522 ==
LOC: EC 06:32 → 4SSUR 08:19
PROVIDERS: ADMIT Orthopaedic Surgery; ATTEND Orthopaedic Surgery
PROC: 0SRB04Z Replacement of Left Hip Joint with Ceramic on Polyethylene Synthetic Substitute, Open Approach (ICD-10-PCS; principal; 2023-11-14 08:00)
PROC: 3E0T3BZ Introduction of Anesthetic Agent into Peripheral Nerves and Plexi, Percutaneous Approach (ICD-10-PCS; principal; 2023-11-14 08:00)
DX: S72.011A Unspecified intracapsular fracture of right femur, initial encounter for closed fracture (principal); I10 Essential (primary) hypertension; E11.9 Type 2 diabetes mellitus without complications; I44.0 Atrioventricular block, first degree; Z79.4 Long term (current) use of insulin; M85.88 Other specified disorders of bone density and structure, other site; W01.0XXA Fall on same level from slipping, tripping and stumbling without subsequent striking against object, initial encounter; Z79.82 Long term (current) use of aspirin; Z79.84 Long term (current) use of oral hypoglycemic drugs; Z79.899 Other long term (current) drug therapy; Z90.710 Acquired absence of both cervix and uterus; Z98.42 Cataract extraction status, left eye; Z98.41 Cataract extraction status, right eye; Z91.041 Radiographic dye allergy status
CPT/HCPCS: 36415; 71045; 73501; 73502; 80048; 80053; 81001; 82306; 83036; 85025; 85610; 85730; 93005; 99285

== ENCOUNTER → 2023-12-29 | Outpatient (CLI) | payer MEDICARE ==
[2023-12-29 18:49] LABS: HCT 37.5 % (37.2-46.3); MCH 25.6 pg (27.0-32.0); MCHC 29.3 g/dL (32.0-37.0); MCV 87.2 FL (80.0-97.0); Mean Platelet Volume 10.3 FL (9.5-12.2); NRBC Per 100 WBC 0 X 10*3/uL (0.00-0.01); Platelet Count 399 X 10*3/uL (140-440); RDW 15.5 % (11.5-14.5); WBC 10.22 X 10*3/uL (4.50-10.00)
[2023-12-30 02:39] LABS: ALT 12 U/L (8-44); AST 15 U/L (13-35); Albumin 4.3 g/dL (3.8-4.9); Albumin/Globulin Ratio 1.34 Ratio (1.60-3.17); Alkaline Phosphatase 102 U/L (41-126); BUN/Creat Ratio 29.86 Ratio (12.00-20.00); Blood Urea Nitrogen 20.9 mg/dL (9.0-27.0); Carbon Dioxide 25.5 mmol/L (21.6-31.8); Chloride 104 mmol/L (96-109); Globulin 3.2 g/dL (1.6-3.3); Glucose 91 mg/dL (70-110); Potassium 4.4 mmol/L (3.5-5.5); Sodium 140 mmol/L (135-145); Total Bilirubin <0.2 mg/dL (0.3-1.2); Total Protein 7.5 g/dL (6.2-8.2)
== END | disposition home or self-care (01) ==
LOC: LABWHC1 16:04
PROVIDERS: ATTEND Orthopaedic Surgery
DX: M51.36 Other intervertebral disc degeneration, lumbar region (principal); E11.9 Type 2 diabetes mellitus without complications; Z47.1 Aftercare following joint replacement surgery; S72.041D Displaced fracture of base of neck of right femur, subsequent encounter for closed fracture with routine healing; M43.16 Spondylolisthesis, lumbar region; Z96.641 Presence of right artificial hip joint; X58.XXXD Exposure to other specified factors, subsequent encounter
CPT/HCPCS: 36415; 80053; 85027